=== PATIENT | female | born 1995 | race Caucasian/White ===

== ENCOUNTER 2022-07-16 16:54 | Emergency (ER) | payer BC, SELFPAY ==
[2022-07-16 17:08] VITALS: BP 105/66; PULSE 95; RESP 16; TEMP 36.8; O2SAT 98; BMI 22.1
--- NOTE | 2022-07-16 17:12 | DI.RAD.S_ITS ---
PROCEDURE: XR CHEST 2V INDICATIONS: cough/asthma TECHNIQUE: 2 views of the chest were acquired. COMPARISON: None. FINDINGS: Surgical changes and devices: None. Lungs and pleura: Lungs are clear. No pleural effusions or pneumothorax. Mediastinum: Mediastinal contours are normal. Heart size is normal. Bones and chest wall: No suspicious bony abnormalities. Soft tissues appear unremarkable. IMPRESSION: Normal two view chest x-ray Approved by: Kristofer Mitchell M.D. on 07/16/2022 at 17:04
[2022-07-16 18:22] LABS: Adenovirus Not Detected (Not Detect); B. parapertussis Not Detected (Not Detecte); Bordetella pertussis Not Detected (Not Detecte); Chlamydophila pneumoniae Not Detected (Not Detect); Coronavirus 229E Not Detected (Not Detect); Coronavirus HKU1 Not Detected (Not Detect); Coronavirus NL 63 Not Detected (Not Detect); Coronavirus OC43 Not Detected (Not Detect); Human Metapneumovirus Not Detected (Not Detect); Human Rhinovirus/Enterovirus Detected (Not Detect); Influenza A Not Detected (Not Detect); Influenza B Not Detected (Not Detect); Mycoplasma pneumoniae Not Detected (Not Detect); Parainfluenza Virus 1 Not Detected (Not Detect); Parainfluenza Virus 2 Not Detected (Not Detect); Parainfluenza Virus 3 Not Detected (Not Detect); Parainfluenza Virus 4 Not Detected (Not Detect); Respiratory Syncytial Virus Not Detected (Not Detect); SARS- CoV-2 Not Detected (Not Detecte)
--- NOTE | 2022-07-16 18:33 | ED.URI ---
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 Mainly due to persistent throat pain patient wanted to be assessed. She denies fever admits to some chills, persistent dry cough, and clear nasal discharge. Related Data Allergies Allergy/AdvReac Type Severity Reaction Status Date / Time Penicillins Allergy Verified 07/16/22 19:05 Review of Systems <Sahra Muniz PA-C - Last Filed: 07/16/22 19:09> Review of Systems Narrative: Pertinent review of systems is otherwise normal unless stated in HPI Exam <Sahra Muniz PA-C - Last Filed: 07/16/22 19:09> Narrative Exam Narrative: GENERAL: 26 year old patient appears stated age. Well-developed patient, in no acute distress. HEAD: Atraumatic. Normocephalic. EYES: Pupils equal round and reactive. Extraocular motions intact. No scleral icterus. No injection or drainage. ENT: Nasopharynx was clear bilateral nostril discharge without bleeding, purulent drainage. Throat with erythema, no exudates no tonsillar hypertrophy Airway patent. NECK: Trachea midline. Non tender CARDIOVASCULAR: Regular rate and rhythm without murmurs, gallops, or rubs. RESPIRATORY: Clear to auscultation. Breath sounds equal bilaterally. No wheezes, rales, or rhonchi. GASTROINTESTINAL: Abdomen soft, non-tender, nondistended. EXTREMITIES: No edema or joint tenderness. BACK: Nontender without deformity or crepitance. No flank tenderness. NEURO: AOx3. No focal deficits SKIN: No rash or erythema of visible areas Initial Vital Signs Initial Vital Signs: Vital Signs Temperature 98.2 F 07/16/22 17:08 Pulse Rate 95 H 07/16/22 17:08 Respiratory Rate 16 07/16/22 17:08 Blood Pressure 105/66 07/16/22 17:08 Pulse Oximetry 98 07/16/22 17:08 Oxygen Delivery Method 07/16/22 17:08 <Solange Em DO - Last Filed: 07/17/22 02:27> Initial Vital Signs Initial Vital Signs: Vital Signs Temperature 98.2 F 07/16/22 17:08 Pulse Rate 95 H 07/16/22 17:08 Respiratory Rate 16 07/16/22 17:08 Blood Pressure 105/66 07/16/22 17:08 Pulse Oximetry 98 07/16/22 17:08 Oxygen Delivery Method 07/16/22 17:08 Course <Sahra Muniz PA-C - Last Filed: 07/16/22 19:09> Orders Ordered: ED Orders 07/16/22 17:12 XR chest 2V Stat 07/16/22 17:13 Respiratory Panel (Film Array) Stat Vital Signs Vital signs: Vital Signs - 8 hr 07/16/22 19:16 Pulse Rate 94 H Respiratory Rate 16 Blood Pressure 110/75 Pulse Oximetry 99 Oxygen Delivery Method Room Air <Solange Em DO - Last Filed: 07/17/22 02:27> Orders Ordered: ED Orders 07/16/22 17:12 XR chest 2V Stat 07/16/22 17:13 Respiratory Panel (Film Array) Stat Vital Signs Vital signs: Vital Signs - 8 hr 07/16/22 19:16 Pulse Rate 94 H Respiratory Rate 16 Blood Pressure 110/75 Pulse Oximetry 99 Oxygen Delivery Method Room Air MDM - URI/Sore Throat <OUSMANE Richards Last Filed: 07/16/22 19:09> Lab Data Labs: Lab Results 07/16/22 Range/Units 17:13 Chlamy pneumoniae PCR Not detected (Not Detect) Adenovirus (PCR) Not detected (Not Detect) B. pertussis DNA (PCR) Not detected (Not Detecte) B.parapertussis DNA PCR Not detected (Not Detecte) Coronavirus OC43 (PCR) Not detected (Not Detect) Coronavirus HKU1 (PCR) Not detected (Not Detect) Coronavirus 229E (PCR) Not detected (Not Detect) SARS-CoV-2 (PCR) Not detected (Not Detecte) Coronavirus NL63 (PCR) Not detected (Not Detect) Human Metapneumovir PCR Not detected (Not Detect) Influenza Type A (PCR) Not detected (Not Detect) Influenza Type B (PCR) Not detected (Not Detect) M. pneumoniae (PCR) Not detected (Not Detect) Parainfluenza 1 (PCR) Not detected (Not Detect) Parainfluenza 2 (PCR) Not detected (Not Detect) Parainfluenza 3 (PCR) Not detected (Not Detect) Parainfluenza 4 (PCR) Not detected (Not Detect) RSV (PCR) Not detected (Not Detect) Entero/Rhino (PCR) Detected H (Not Detect) MDM Narrative Medical decision making narrative: Patient diagnosed with rhinovirus, which presents itself was upper respiratory symptoms. For vital signs are stable she remains afebrile she was educated on symptom management, including decongesting, Tylenol gargle throat with salt water solution she can try some numbing lozenges such as Cepacol. Seek attention with worsening symptoms. <Solange Em, DO - Last Filed: 07/17/22 02:27> Lab Data Labs: Lab Results 07/16/22 Range/Units 17:13 Chlamy pneumoniae PCR Not detected (Not Detect) Adenovirus (PCR) Not detected (Not Detect) B. pertussis DNA (PCR) Not detected (Not Detecte) B.parapertussis DNA PCR Not detected (Not Detecte) Coronavirus OC43 (PCR) Not detected (Not Detect) Coronavirus HKU1 (PCR) Not detected (Not Detect) Coronavirus 229E (PCR) Not detected (Not Detect) SARS-CoV-2 (PCR) Not detected (Not Detecte) Coronavirus NL63 (PCR) Not detected (Not Detect) Human Metapneumovir PCR Not detected (Not Detect) Influenza Type A (PCR) Not detected (Not Detect) Influenza Type B (PCR) Not detected (Not Detect) M. pneumoniae (PCR) Not detected (Not Detect) Parainfluenza 1 (PCR) Not detected (Not Detect) Parainfluenza 2 (PCR) Not detected (Not Detect) Parainfluenza 3 (PCR) Not detected (Not Detect) Parainfluenza 4 (PCR) Not detected (Not Detect) RSV (PCR) Not detected (Not Detect) Entero/Rhino (PCR) Detected H (Not Detect) Discharge Plan Departure Patient Disposition: Home Clinical Impression: Viral infection Instructions: DI for Viral Upper Respiratory Infection -- Adult Activity Restrictions/Additional Instructions: You were seen in ER department with upper respiratory infection diagnosed as a rhino virus. While there is no definitive antiviral therapy for specifically rhinovirus, the symptom management with rest, hydration, cough suppression , decongestion is advised with [id number] preparations such as Gatorade, Robitussin DM, Tylenol as needed pain Seek attention with worsening symptoms such as shortness of breath, fever, listlessness worsening fatigue. Visit Report Forms: Patient Portal/API <Solange Em DO - Last Filed: 07/17/22 02:27> Cosign ED Attending Cosabeature Attestation: I was immediately available in the department for consultation. Documentation has been reviewed. I agree with assessment and plan.
--- NOTE | 2022-07-16 19:11 | PC.NURSE ---
pt's daughter with entero/rhino virus and pt exposed and experiencing the same sx. RR even and unlabored. NAD. pt reports my made me come get checked
[2022-07-16 19:16] VITALS: BP 110/75; PULSE 94; RESP 16; O2SAT 99
== END 2022-07-16 19:16 | disposition home or self-care (01) ==
PROVIDERS: Emergency Medicine; Emergency Provider Physician Assistant Medical
DX: B34.9 Viral infection, unspecified (principal); Z20.822 Contact with and (suspected) exposure to COVID-19
CPT/HCPCS: 71046; 87633; 99281; 99283

== ENCOUNTER 2022-11-27 08:44 | Emergency (ER) | payer BC, SELFPAY ==
[2022-11-27 08:48] VITALS: BP 121/64; PULSE 106; O2SAT 97
[2022-11-27 08:54] VITALS: BP 121/64; PULSE 99; RESP 21; TEMP 36.8; O2SAT 99; BMI 23.0
[2022-11-27 09:00] VITALS: PULSE 108; O2SAT 97
--- NOTE | 2022-11-27 09:02 | ED_ITS ---
HPI - Headache General Chief Complaint: Headache Stated Complaint: migraine T-1 Time Seen by Provider: 11/27/22 09:02 Source: patient Mode of arrival: Ambulatory Limitations: no limitations History of Present Illness HPI Narrative: This is a 27-year-old female with chronic migraines who receives Botox, and no uterine polyp. Patient presents with typical migraine symptoms. She typically gets vision loss with her right eye pain and nausea and vomiting. She states she normally takes her medication amerge, metformin she is about to start IVF and has planned polypectomy for uterine polyp on the 30 of November. Patient states she was told not to take her migraine medication to present to the ER if she had symptoms within the week before. Patient states she tried Tylenol last night without improvement. She states this is very typical pattern for her. She denies fevers or chills, no other changes to her typical pattern. She denies numbness, tingling weakness difficulty with gait. Patient denies any inf ectious symptoms. She is had nausea and vomiting. No diarrhea constipation. Patient does receive Botox for her migraines. She denies tobacco, occasional alcohol, no illicit. She states she is allergic to penicillins. Related Data Allergies Allergy/AdvReac Type Severity Reaction Status Date / Time Penicillins Allergy Verified 07/16/22 19:05 Review of Systems Review of Systems ROS Unobtainable: All systems reviewed & are unremarkable except as noted in HPI and below Patient History Social History Smoking Status: Never smoker Smoking Status: Never smoker alcohol intake frequency: a few times a week Substance Use Type: does not use Exam Narrative Exam Narrative: GEN: well nourished, well appearing female, alert and oriented x 3, patient appears to be in moderate distress. HEENT: Atraumatic, pupils are equal round reactive to light, extraocular movements are intact, nares are clear. Throat is clear without any exudates, erythema, tonsillar enlargement or uvular deviation. No meningeal signs. HEART: Regular rate and rhythm without murmur, clicks, rubs. LUNGS:Lungs clear to auscultation, no wheezes, rales, crackles, chest moves symmetrically ABD:bowel sounds normal, soft, non-tender, no guarding, rebound, rigidity, no masses noted, no hepatosplenomegaly :No CVA tenderness MSCL: Non-tender, no muscle atrophy, muscles strength 5/5 upper and lower extremities, full range of motion, normal gait NEURO:CN 2-12 intact, sensation normal SKIN:no rash, erythema or other skin change Initial Vital Signs Initial Vital Signs: Vital Signs Pulse Rate 106 H 11/27/22 08:48 Blood Pressure 121/64 11/27/22 08:48 Pulse Oximetry 97 11/27/22 08:48 Course Orders Ordered: Discontinued Medications Diphenhydramine HCl (Diphenhydramine 50 Mg/Ml Vial) 50 mg IV NOW ONE Stop: 11/27/22 10:21 Last Admin: 11/27/22 10:24 Dose: 50 mg Documented By: ÁNGELU Sodium Chloride (Normal Saline 0.9%) 1,000 mls @ 1,000 mls/hr IV BOLUS ONE Stop: 11/27/22 10:09 Last Infusion: 11/27/22 10:14 Dose: 0 mls/hr Documented By: Admin: 11/27/22 09:23 Dose: 1,000 mls/hr Documented By: CHAGO Ketorolac Tromethamine (Ketorolac 30 Mg/Ml Vial) 15 mg IV NOW ONE Stop: 11/27/22 10:21 Last Admin: 11/27/22 10:24 Dose: 15 mg Documented By: ÁNGELU Metoclopramide HCl (Metoclopramide 10 Mg/2 Ml Inj) 10 mg IV NOW ONE Stop: 11/27/22 09:11 Last Admin: 11/27/22 09:23 Dose: 10 mg Documented By: CHAGO Vital Signs Vital signs: Vital Signs - 8 hr 11/27/22 11:02 Temperature 98.1 F Pulse Rate 99 H Respiratory Rate 20 Blood Pressure 113/73 Pulse Oximetry 99 Oxygen Delivery Method Room Air MDM - Headache MDM Narrative Medical decision making narrative: This is a 27-year-old who presents with her typical migraine symptoms but states that she was told to present to the ER she has planned uterine polypectomy on the 30 of November and was told to avoid her abortive medication. Patient did try Tylenol last night. She does have some active vomiting in the department. Patient's symptoms are her typical characteristic migraine which she does receive Botox for as well. Plan for fluids, Reglan discussed with patient if this is not helpful can do a single dose of Toradol. On recheck patient states she would like take her IV out and leave, after discussion she is feeling very anxious I suspect she is having a dystonic reaction to the Reglan. She states it started shortly after the medication she is been up and ambulating in the department since then. Discussed we can try dose of Benadryl see if this improves her symptoms. Headache still present so will add a dose of Toradol and recheck. Patient's chin dystonic symptoms have improved she states her headache is significantly better after the Toradol. She would like to return home. Discharge Plan Departure Patient Disposition: Home Clinical Impression: Migraine Instructions: DI for Migraine Activity Restrictions/Additional Instructions: You appear to have had a dystonic reaction to the Reglan, it is not an allergy but is more of an adverse reaction. Please share this when asked about allergies. I hope you continue to feel better. You can take Tylenol up to a 1000 mg every 6 hours as needed for any headache recurrence. Please return for fevers, severe headaches, new vision changes, recurrent or persistent migraines, persistent vomiting, new numbness tingling, difficulty with speech or other new or concerning changes. Referrals: Miscellaneous,Doctor, MD [Primary Care Provider] - Stand Alone Forms: Patient Portal/API
[2022-11-27 09:13] VITALS: BP 133/70; PULSE 93; O2SAT 97
[2022-11-27] MEDS: METOCLOPRAMIDE 10 MG/2 ML INJ IV (09:23)
[2022-11-27] MEDS: SODIUM CHLORIDE 0.9% 1,000 ML 1000 ML IV (09:23)
[2022-11-27 09:30] VITALS: BP 122/67; PULSE 101; O2SAT 96
[2022-11-27] MEDS: diphenhydrAMINE 50 MG/ML VIAL IV (10:24)
[2022-11-27] MEDS: KETOROLAC 30 MG/ML VIAL 15 MG IV (10:24)
[2022-11-27 11:02] VITALS: BP 113/73; PULSE 99; RESP 20; TEMP 36.7; O2SAT 99
== END 2022-11-27 11:03 | disposition home or self-care (01) ==
PROVIDERS: Emergency Provider Emergency Medicine
DX: G43.909 Migraine, unspecified, not intractable, without status migrainosus (principal)
CPT/HCPCS: 36415; 96361; 96374; 96375; 99284; J1200; J1885; J2765

== ENCOUNTER 2023-06-04 01:09 | Observation (INO) | payer BC, SELFPAY ==
[2023-06-04] VITALS (27 sets, daily range): BP systolic 79–121; BP diastolic 47–73; PULSE 72–136; RESP 15–34; TEMP 36.1–36.8; O2SAT 97–100; BMI 22.6
--- NOTE | 2023-06-04 | PATH_ITS ---
[facility] Accession Number: [id number] No. of containers..01 Tissue . 01 Material submitted: . product of conception - RETAINED PRODUCTS OF CONCEPTION . 01 Diagnosis: A. Retained Products of Conception, Removal: Residual fragments of syncytiotrophoblasts, a rare chorionic villus, and implantation site. Background with decidua and inactive endometrium with features of breakdown. Blood, fibrin, and inflammatory debris. MRV 06/06/2023 1609 Local . 01 Electronically signed: . Maria Teresa Taveras MD, Pathologist NPI- [id number] . 01 Gross description: . The specimen is received in formalin labeled with the patient's name, , and retained products of conception, consists of multiple [place]ley, variably spongy to membranous soft tissue fragments admixed with hemorrhagic material aggregating to 4.6 x 4.0 x 0.7 cm. No tissue is identified. Box Loader sections are submitted in cassettes A1-A2. ([id number]) /MRV 06/05/2023 1253 Local . 01 Pathologist provided ICD-10: O73.1 . 01 CPT . 558317 Specimen Comment: A courtesy copy of this report has been sent to [phone] Performed at: 01 [facility] [address] [place] [address] [address], [place], [place] [id number] MD Vimal Bliss MD Phone: [phone]
[2023-06-04 01:46] LABS: Add Manual Diff / Slide Review NO; Basophils Absolute Auto 100 /uL (0-100); Basophils Percent Auto 0.9 % (0-2); Eosinophils Absolute Auto 200 /uL (0-450); Eosinophils Percent Auto 2.1 % (2-4); Hematocrit 35.3 % (36-46); Hemoglobin 12.2 g/dL (12.0-16.0); Lymphocytes Absolute Auto 3100 /uL (1100-4500); Lymphocytes Percent Auto 38.6 % (25-40); Mean Corpuscular HGB Conc 34.6 % (30-36); Mean Corpuscular Hemoglobin 32.1 PG (26-34); Mean Corpuscular Volume 92.6 fL (80-100); Monocytes Absolute Auto 500 /uL (0-900); Monocytes Percent Auto 5.9 % (3-14); Neutrophils Absolute Auto 4200 /uL (1500-7000); Neutrophils Percent Auto 52.5 % (50-75); Platelet Count 297 X10^3/uL (150-400); Red Blood Cell Count 3.81 X10^6/uL (4.0-5.2); Red Cell Distribution Width 12.4 % (11.6-14.8); White Blood Cell Count 7.9 X10^3/uL (4.5-11.0)
[2023-06-04 02:02] LABS: BUN Creatinine Ratio 20.6 (6-22); Blood Urea Nitrogen 13 mg/dL (7-17); Calcium 8.5 mg/dL (8.4-10.2); Carbon Dioxide 24 mmol/L (22-32); Chloride 103 mmol/L (98-107); Estimated Glomerular Filt Rate > 60 mL/min (>60); Glucose 102 mg/dL (70-100); HEMOLYSIS 18 (0-50); Potassium 3.7 mmol/L (3.4-5.1); Sodium 137 mmol/L (137-145)
[2023-06-04] MEDS: SODIUM CHLORIDE 0.9% 1,000 ML 1000 ML IV ×3 (02:03→03:05)
[2023-06-04 02:31] LABS: HCG Quantitative /Beta subunit 18745 mIU/mL
--- NOTE | 2023-06-04 02:37 | DI.US.S_ITS ---
PROCEDURE: US PELVIC COMPLETE INDICATIONS: Miscarriage TECHNIQUE: Real-time scanning was performed of the pelvic organs, with image documentation. Additional endovaginal scanning was necessary due to incomplete visualization of the adnexal and endometrial structures by transabdominal scanning. COMPARISON: None. FINDINGS: Uterus: Uterus is anteverted and normal in size at 10 x 6.2 x 4.4 cm. The myometrium is homogeneous. The endometrium measures 15 mm combined thickness. Endometrial contents are heterogeneous. No increased vascularity. No surrounding hyperemia. No intrauterine gestational sac is identified. Clot within the cervix is suspected. Ovaries: The right ovary measures 2 x 1.7 x 1.4 cm, with a calculated ovarian volume of 3 cc. The left ovary measures 2.5 x 1.6 x 1.3 cm, with a calculated ovarian volume of 3 cc. The ovaries have a normal sonographic appearance. Less than 12 follicles can be seen in each ovary. No adnexal masses are seen. Other: Small volume of free fluid in the pelvis. IMPRESSION: 1. Endometrium is heterogeneous in appearance measuring 15 mm in thickness. No hyperemia. Clot within the cervix is suspected. 2. No significant ovarian cyst. This report is concordant with the overnight preliminary interpretation. We strive to produce accurate, complete, and clear reports of imaging services. To assist us in improving patient care, this report was composed using standard report templates and voice recognition software. Therefore, it may contain abnormal punctuation, insertions and/or omissions. Occasional wrong-word or sound-alike substitutions may occur. Though we review the report and make efforts to correct it, we do recommend that the report be read carefully in proper context to recognize any text inaccuracies. Dictated by: Hollis Hatch M.D. on 06/04/2023 at 8:20 Approved by: Hollis Hatch M.D. on 06/04/2023 at 8:27
--- NOTE | 2023-06-04 02:38 | ED_ITS ---
HPI - General Chief complaint: Vaginal Bleeding Stated complaint: vaginal bleeding going thru ivf Time Seen by Provider: 06/04/23 01:43 Source: patient Mode of arrival: Ambulatory Limitations: no limitations History of Present Illness HPI Narrative: Patient is a healthy 27-year-old female presenting with vaginal bleeding cramping and pain. She reports that he had IVF she would an ultrasound last week which showed some bleeding and probable demise. Tonight she started having pretty significant bleeding and cramping. And came to the ED. nurse started IV and she very pale she vasovagal. She is receiving care at [facility]. Related Data Allergies Allergy/AdvReac Type Severity Reaction Status Date / Time Penicillins Allergy Verified 07/16/22 19:05 metoclopramide [From Reglan] AdvReac Intermediate Anxiety Verified 06/04/23 05:41 Review of Systems Review of Systems ROS Unobtainable: All systems reviewed & are unremarkable except as noted in HPI and below Exam Initial Vital Signs Initial Vital Signs: Vital Signs Temperature 97.4 F L 06/04/23 01:13 Pulse Rate 98 H 06/04/23 01:13 Respiratory Rate 20 06/04/23 01:13 Blood Pressure 105/58 L 06/04/23 01:13 Pulse Oximetry 97 06/04/23 01:13 Oxygen Delivery Method Room Air 06/04/23 01:13 GENERAL: Pale ill-appearing 27-year-old female HEENT: Head atraumatic,EOMI, pupils reactive, face symmetric, moist mucous membranes CARDIOVASCULAR: Regular rate and rhythm without murmurs, rubs or gallops. RESPIRATORY: Breath sounds equal bilaterally, no wheezes rales or rhonchi. ABDOMEN: Soft, nontender. Normoactive bowel sounds all 4 quadrants. No guarding or rebound. PELVIC: External genitalia is normal, excessive vaginal bleeding with large clot os open EXTREMITIES: Normal range of motion, no clubbing or edema. Neurovascularly intact NEUROLOGICAL: Alert and oriented x4.Normal gait and speech. SKIN: Warm, dry, no laceration, no petechiae, no rashes or lesions. Course Orders Ordered: ED Orders 06/04/23 01:29 Basic Metabolic Panel Stat Complete Blood Count AUTO DIFF Stat HCG Quantitative /Beta subunit Stat PRBC [Packed Cells] Stat Type and Screen Stat 06/04/23 01:38 EKG-12 Lead Routine 06/04/23 02:37 US pelvic complete Stat 06/04/23 03:06 Hemoglobin and Hematocrit Stat Albuterol (Albuterol 2.5 Mg/3 Ml Neb (Adult)) 2.5 mg INH NOW PRN PRN Reason: Coughing, Wheezing, Dyspnea Hydromorphone HCl (Hydromorphone 1 Mg Inj) 0.5 mg IV Q5MIN PRN PRN Reason: Mod pain Lactated Ringer's (Lactated Ringers) 1,000 mls @ 100 mls/hr IV CONT SHAKILA Meperidine HCl (Meperidine 50 Mg/Ml Inj) 25 mg IV PACUNOW PRN PRN Reason: Moderate pain or shivering Metoclopramide HCl (Metoclopramide 10 Mg/2 Ml Inj) 10 mg IV NOW PRN PRN Reason: Nausea And Vomiting Ondansetron HCl (Ondansetron 4 Mg/2 Ml Inj) 4 mg IV NOW PRN PRN Reason: Nausea And Vomiting Oxycodone/Acetaminophen (Oxycodone/Acetaminophen 5/325 Tablet) 1 tab PO PACUNOW PRN PRN Reason: Mild or Moderate Pain Discontinued Medications Sodium Chloride (Normal Saline 0.9%) 1,000 mls @ 1,000 mls/hr IV BOLUS ONE Stop: 06/04/23 02:59 Last Infusion: 06/04/23 02:13 Dose: Infused Documented By: Admin: 06/04/23 02:03 Dose: 1,000 mls/hr Documented By: AMAN Sodium Chloride (Normal Saline 0.9%) 1,000 mls @ 1,000 mls/hr IV BOLUS ONE Stop: 06/04/23 03:13 Last Infusion: 06/04/23 03:08 Dose: Infused Documented By: Admin: 06/04/23 02:15 Dose: 1,000 mls/hr Documented By: AMAN Sodium Chloride (Normal Saline 0.9%) 1,000 mls @ 1,000 mls/hr IV BOLUS ONE Stop: 06/04/23 03:59 Last Infusion: 06/04/23 04:00 Dose: Infused Documented By: Admin: 06/04/23 03:05 Dose: 1,000 mls/hr Documented By: GENIE Lactated Ringer's (Lactated Ringers) 1,000 mls @ 42 mls/hr IV CONT SHAKILA Ketorolac Tromethamine (Ketorolac 30 Mg/Ml Vial) 15 mg IV NOW ONE Stop: 06/04/23 03:38 Last Admin: 06/04/23 03:52 Dose: 15 mg Documented By: GENIE Vital Signs Vital signs: Vital Signs - 8 hr 06/04/23 01:13 06/04/23 01:34 06/04/23 01:39 Temperature 97.4 F L Pulse Rate 98 H 79 Respiratory Rate 20 25 H Blood Pressure 105/58 L 90/54 L Pulse Oximetry 97 98 Oxygen Delivery Method Room Air 06/04/23 01:39 06/04/23 01:42 06/04/23 01:42 Temperature Pulse Rate 82 72 Respiratory Rate 27 H 20 Blood Pressure 88/50 L Pulse Oximetry 98 99 Oxygen Delivery Method 06/04/23 02:00 06/04/23 02:00 06/04/23 02:15 Temperature Pulse Rate 74 72 Respiratory Rate 18 19 Blood Pressure 83/54 L Pulse Oximetry 100 100 Oxygen Delivery Method Room Air 06/04/23 02:15 06/04/23 02:27 06/04/23 02:27 Temperature Pulse Rate 110 H Respiratory Rate 32 H Blood Pressure 80/50 L 87/52 L Pulse Oximetry 100 Oxygen Delivery Method 06/04/23 02:30 06/04/23 02:30 06/04/23 02:45 Temperature Pulse Rate 105 H Respiratory Rate 15 Blood Pressure 95/55 L 80/47 L Pulse Oximetry 100 Oxygen Delivery Method 06/04/23 02:45 06/04/23 02:48 06/04/23 02:48 Temperature Pulse Rate 87 87 Respiratory Rate 16 18 Blood Pressure 79/51 L Pulse Oximetry 100 100 Oxygen Delivery Method 06/04/23 02:50 06/04/23 02:50 06/04/23 03:00 Temperature Pulse Rate 92 H 87 Respiratory Rate 19 17 Blood Pressure 86/54 L Pulse Oximetry 100 100 Oxygen Delivery Method 06/04/23 03:00 06/04/23 03:02 06/04/23 03:02 Temperature Pulse Rate 92 H Respiratory Rate 19 Blood Pressure 79/47 L 84/52 L Pulse Oximetry 100 Oxygen Delivery Method 06/04/23 03:15 06/04/23 03:15 06/04/23 03:30 Temperature Pulse Rate 89 90 Respiratory Rate 18 18 Blood Pressure 82/51 L Pulse Oximetry 100 100 Oxygen Delivery Method Room Air 06/04/23 03:30 06/04/23 03:45 06/04/23 03:45 Temperature Pulse Rate 84 Respiratory Rate 17 Blood Pressure 86/53 L 80/51 L Pulse Oximetry 100 Oxygen Delivery Method 06/04/23 04:00 06/04/23 04:00 Temperature Pulse Rate 85 Respiratory Rate 15 Blood Pressure 89/51 L Pulse Oximetry 97 Oxygen Delivery Method MDM - OB/Uterine Contractions Lab Data 06/04/23 04:17 06/04/23 01:29 Labs: Lab Results 06/04/23 06/04/23 Range/Units 01:29 03:06 WBC 7.9 (4.5-11.0) X10^3/uL RBC 3.81 L (4.0-5.2) X10^6/uL Hgb 12.2 9.1 L (12.0-16.0) g/dL Hct 35.3 L 26.3 L (36-46) % MCV 92.6 (80-100) fL MCH 32.1 (26-34) PG MCHC 34.6 (30-36) % RDW 12.4 (11.6-14.8) % Plt Count 297 (150-400) X10^3/uL Neut % (Auto) 52.5 (50-75) % Lymph % (Auto) 38.6 (25-40) % [place] % (Auto) 5.9 (3-14) % Eos % (Auto) 2.1 (2-4) % Baso % (Auto) 0.9 (0-2) % Neut # (Auto) 4200 (9776-6311) /uL Lymph # (Auto) 3100 (7865-5573) /uL [place] # (Auto) 500 (0-900) /uL Eos # (Auto) 200 (0-450) /uL Baso # (Auto) 100 (0-100) /uL Sodium 137 (137-145) mmol/L Potassium 3.7 (3.4-5.1) mmol/L Chloride 103 (98-107) mmol/L Carbon Dioxide 24 (22-32) mmol/L BUN 13 (7-17) mg/dL Creatinine 0.63 (0.52-1.04) mg/dL Estimated GFR > 60 (>60) mL/min BUN/Creatinine Ratio 20.6 (6-22) Glucose 102 H (70-100) mg/dL Calcium 8.5 (8.4-10.2) mg/dL HCG, Quant 49220 mIU/mL Blood Type O Positive Antibody Screen Negative Crossmatch See Detail Point of Care Testing Test Results Not applicable Imaging Data US - OB: Radiologist's Impression: Preliminary report: Heterogeneous thickening of endometrium measuring up to 15 mm no associated hypervascularity heterogeneous thickening of the cervix which may indicate blood clot. Ovarian is unremarkable. MDM Narrative Medical decision making narrative: Patient 27-year-old female presents with spontaneous miscarriage she was when she arrived. She reports that she does not like needles or IVs and she did vasovagal IV was placed. However her blood pressure remained low in the 80s with minimal improvement with IV fluids. She received 3 L of IV fluid blood pressure was really in the 90s. She was not persistently tachycardic. Hemoglobin additionally 12.2 with hematocrit 35.3. Decreased to 9.1 and 26.3 respectively. Partial dilution however she has excessive bleeding upon exam. Pelvic exam revealed very large blood clot with quite a bit of blood. 100-[address] out[address] Guido called updated on patient's symptoms and test results agrees to come in for emergent D and C. Blood is ordered patient's blood pressure decreases to 80/50. Discharge Plan Departure Patient Disposition: Admitted to Surgery Clinical Impression: Hemorrhagic shock, Incomplete miscarriage Admit Date/Time: 06/04/23 04:05 Admit Provider: Kerry Guido [facility] Discharge Plan Provider Discharge comment: Patient to call with fever, chills, or bleeding vaginally more than a pad in an hour Ibuprofen 600 mg every 6 hours as needed Tylenol 650 mg every 6 hours as needed Patient may be discharged once vital signs are stable for 2 hours and patient is able to sit and stand without getting dizzy Please have patient eat and drink something before being discharged from the hospital Diet/Activity/Treatments Diet: Diet as Tolerated Activity: Nothing in the vagina until postop appointment
[2023-06-04 03:15] LABS: Hematocrit 26.3 % (36-46); Hemoglobin 9.1 g/dL (12.0-16.0)
[2023-06-04] MEDS: KETOROLAC 30 MG/ML VIAL 15 MG IV (03:52)
--- NOTE | 2023-06-04 04:14 | P.HPOB_ITS ---
History of Present Illness History of Present Illness Reason for admission: vaginal bleeding Narrative: Merlyn Hickman is a 27 year old female 2 para 1 who presented to the emergency department a few hours ago with brisk vaginal bleeding. Patient was seen by [facility]. She was found to have a nonviable 6 days ago. She initially had some spotting. Then around midnight the bleeding got heavy. In the emergency department her initial hemoglobin was 12.2. 2 hours later it had dropped to 9.1. She continues to have brisk vaginal bleeding. She also has had low blood pressure over the last hour. [facility] Medical History (Updated 06/04/23 @ 04:17 by Kerry Guido MD) Chronic migraine Asthma PCOS (polycystic ovarian syndrome) Infertility Surgical History (Updated 06/04/23 @ 04:18 by Kerry Guido MD) History of section History of hysteroscopy History of appendectomy Social History Smoking Status: Never smoker Meds Home Medications and Allergies Allergies Allergy/AdvReac Type Severity Reaction Status Date / Time Penicillins Allergy Verified 07/16/22 19:05 Exam Vital Signs (past 8 hours): - 06/04/23 01:13 06/04/23 01:34 06/04/23 01:39 Temperature 97.4 F L Pulse Rate 98 H 79 Respiratory Rate 20 25 H Blood Pressure 105/58 L 90/54 L Pulse Oximetry 97 98 Oxygen Delivery Method Room Air 06/04/23 01:39 06/04/23 01:42 06/04/23 01:42 Temperature Pulse Rate 82 72 Respiratory Rate 27 H 20 Blood Pressure 88/50 L Pulse Oximetry 98 99 Oxygen Delivery Method 06/04/23 02:00 06/04/23 02:00 06/04/23 02:15 Temperature Pulse Rate 74 72 Respiratory Rate 18 19 Blood Pressure 83/54 L Pulse Oximetry 100 100 Oxygen Delivery Method Room Air 06/04/23 02:15 06/04/23 02:27 06/04/23 02:27 Temperature Pulse Rate 110 H Respiratory Rate 32 H Blood Pressure 80/50 L 87/52 L Pulse Oximetry 100 Oxygen Delivery Method 06/04/23 02:30 06/04/23 02:30 06/04/23 02:45 Temperature Pulse Rate 105 H Respiratory Rate 15 Blood Pressure 95/55 L 80/47 L Pulse Oximetry 100 Oxygen Delivery Method 06/04/23 02:45 06/04/23 02:48 06/04/23 02:48 Temperature Pulse Rate 87 87 Respiratory Rate 16 18 Blood Pressure 79/51 L Pulse Oximetry 100 100 Oxygen Delivery Method 06/04/23 02:50 06/04/23 02:50 06/04/23 03:00 Temperature Pulse Rate 92 H 87 Respiratory Rate 19 17 Blood Pressure 86/54 L Pulse Oximetry 100 100 Oxygen Delivery Method 06/04/23 03:00 06/04/23 03:02 06/04/23 03:02 Temperature Pulse Rate 92 H Respiratory Rate 19 Blood Pressure 79/47 L 84/52 L Pulse Oximetry 100 Oxygen Delivery Method 06/04/23 03:15 06/04/23 03:15 06/04/23 03:30 Temperature Pulse Rate 89 90 Respiratory Rate 18 18 Blood Pressure 82/51 L Pulse Oximetry 100 100 Oxygen Delivery Method Room Air 06/04/23 03:30 06/04/23 03:45 06/04/23 03:45 Temperature Pulse Rate 84 Respiratory Rate 17 Blood Pressure 86/53 L 80/51 L Pulse Oximetry 100 Oxygen Delivery Method Oxygen Delivery Method Room Air Narrative Exam Narrative: Generally: Patient lying flat on the gurney, no acute distress Lungs: Clear to auscultation bilaterally Cardiovascular: Regular rate and rhythm External genitalia: Large amount of blood Extremities: No edema Pelvic exam: Deferred to OR Objective Labs 06/04/23 03:06 06/04/23 01:29 Labs: Laboratory Results - last 24 hr 06/04/23 06/04/23 01:29 03:06 WBC 7.9 RBC 3.81 L Hgb 12.2 9.1 L Hct 35.3 L 26.3 L MCV 92.6 MCH 32.1 MCHC 34.6 RDW 12.4 Plt Count 297 Neut % (Auto) 52.5 Lymph % (Auto) 38.6 [place] % (Auto) 5.9 Eos % (Auto) 2.1 Baso % (Auto) 0.9 Neut # (Auto) 4200 Lymph # (Auto) 3100 [place] # (Auto) 500 Eos # (Auto) 200 Baso # (Auto) 100 Sodium 137 Potassium 3.7 Chloride 103 Carbon Dioxide 24 BUN 13 Creatinine 0.63 Estimated GFR > 60 BUN/Creatinine Ratio 20.6 Glucose 102 H Calcium 8.5 HCG, Quant 52142 Blood Type O Positive Antibody Screen Negative Crossmatch See Detail Assessment & Plan Assessment & Plan narrative: Assessment: 27-year-old 2 para 1 with an incomplete miscarriage Decreased hemoglobin Low blood pressure Plan: Suction D&C The risks, benefits, and alternatives to the procedure were explained to the patient. The risks including bleeding, infection, and uterine perforation. She understands these risks and agrees to proceed. A full par Q was held and consent form was signed. Time Spent With Patient Time with patient: less than 30 minutes
--- NOTE | 2023-06-04 04:17 | SUR.OPER ---
Lithotomy on padded OR bed, head on pillow, arms secured on padded arm boards at <90 degrees abduction. Legs secured in padded yellow fins stirrups.
[2023-06-04 04:25] LABS: Hematocrit 28.1 % (36-46); Hemoglobin 9.6 g/dL (12.0-16.0)
--- NOTE | 2023-06-04 05:10 | PM.GYNOP.1 ---
Operative Date/Time/Diagnoses Date of procedure: 06/04/23 Time of procedure: 05:10 Pre-op diagnosis: Incomplete at 6 weeks' gestation Post-op diagnosis: same Procedure & Clinicians Procedure: Procedures Operation Date: 06/04/23 04:30 Actual Procedure Side Surgeon p Dilation and Curettage Kerry Guido MD Indications: Patient is a 27-year-old 2 para 1 who presented to the emergency department with brisk vaginal bleeding. Her hematocrit dropped from 12.2 down to 9.1 over the course of 2 hours. Her blood pressure was unstable. Surgeon: Kerry Guido Anesthesia Type: General Operative Notes Findings: 7 week size anteverted uterus Large amount of blood in the vagina Large amount of tissue still in the uterus Closure Type: not applicable Specimen(s): products of conception Estimated blood loss (mL): 100 Blood products transfused: packed red blood cells (1 unit) Procedure in detail: Informed consent was obtained. The patient was taken to the operating room where she was placed in the dorsal supine position. After adequate general endotracheal anesthesia was achieved, she was placed in the dorsal lithotomy position, and prepped and draped in the usual sterile fashion. A time-out was performed. A bivalve speculum was placed into the vagina. It immediately filled up with a large amount of clot. The clot was removed from the vagina. A single-tooth tenaculum was placed on the anterior lip of the cervix. The cervix was slightly dilated, but was further dilated to the # 10 Hegar dilator. The #8 plastic curette passed easily into the endometrial cavity. Several passes with suction revealed a large amount of tissue. Gentle sharp curettage was performed yielding minimal amount of clot. Several more passes with suction revealed blood only. The instruments were removed from the uterus. The single-tooth tenaculum was removed from the anterior lip of the cervix. The bivalve speculum was removed from the vagina. Sponge, lap, and instrument counts were correct x2. The patient tolerated the procedure well, and was taken to PACU in stable condition. Complications: none Post-operative Condition: stable Disposition: PACU Plan for aftercare: To acute care for observation and then discharge once stable
[2023-06-04] MEDS: MEPERIDINE 50 MG/ML INJ 25 MG IV (05:35)
[2023-06-04] MEDS: ONDANSETRON 4 MG/2 ML INJ IV (05:36)
--- NOTE | 2023-06-04 08:46 | CM.DANOTE ---
Initial DCP Assessment Note Pt is a 27 yo female, resident of [place], presents with vaginal bleeding and cramping admitted by Dr Guido for dilation and curettage after an incomplete miscarriage. Patient receiving fertility treatment, IVF at [facility] and learned recently that she had a nonviable at approx 5 weeks. PCP: Unknown Payer: [facility] out of [facility] Reviewed chart, patient indp in all aspects, lives with spouse and family. No barriers identified at this time to patient's safe discharge home w/family to assist; close outpatient f/u recommended. CM team will plan to follow closely in case any DC needs or concerns arise. KIMI Mcconnell Discharge Planning/Care Management CM Discharge Assessment Start: 06/04/23 08:40 Freq: Status: Active Protocol: Document 06/04/23 08:40 LACHO (Rec: 06/04/23 08:45 LACHO [id number]) Discharge Planning Assessment Assigned Customer Business Manager KIMI García DPOA/Assigned Designee Name Tao Pillaisofiya, spouse Contact Information [phone] Advance Directives? No History Provided By Patient Prior Living Arrangements House Comment [id number] and father also live with patient Household Members spouse,family,children Type of transporation used prior to Drives own vehicle admit Independent with ADL's Yes Is patient alert and oriented? Yes Caregiver for Another Yes: Child Comment Home w/family Barriers to Discharge No Discharge Plan Home Transportation Arrangement Family Referrals Initiated None needed
--- NOTE | 2023-06-04 09:37 | PC.NURSE ---
pt denied dizziness or lightheadedness while standing up BP 91/56 HR 16, MAP 68, provider aware of her her vitals. ok to DC per Dr. Guido
== END 2023-06-04 09:43 | disposition home or self-care (01) ==
LOC: ED 03:59 → AC 04:27
PROVIDERS: Admitting Provider Obstetrics & Gynecology; Emergency Provider Emergency Medicine; Visit Provider Obstetrics & Gynecology
PROC: (CPT 58120; principal; 2023-06-04 04:30)
DX: O03.1 Delayed or excessive hemorrhage following incomplete spontaneous abortion (principal); Z3A.01 Less than 8 weeks gestation of pregnancy
CPT/HCPCS: 59812; 36415; 36430; 76830; 76856; 80048; 84702; 85014; 85018; 85025; 86850; 86900; 86901; 93005; 96361; 96374; 96375; 99284; G0378; P9016; J0330; J1100; J1885; J2175; J2405; J2704; J3490

== ENCOUNTER 2023-06-09 17:17 | Emergency (ER) | payer BC, SELFPAY ==
[2023-06-04 06:11] VITALS: BMI 22.6
[2023-06-09] VITALS (13 sets, daily range): BP systolic 92–113; BP diastolic 50–72; PULSE 55–105; RESP 16–26; TEMP 36.8; O2SAT 97–100; BMI 24.5
--- NOTE | 2023-06-09 17:20 | ED.GENADULT ---
HPI - General Adult <Cameron Will DO - Last Filed: 06/12/23 17:56> General Chief complaint: Chest Pain Stated complaint: chest pain/sob post op Time Seen by Provider: 06/09/23 17:19 History of Present Illness HPI narrative: 27-year-old female nonsmoker with history of recent with complication of miscarriage at about 6 weeks and resultant hemorrhagic shock and surgical intervention with D&C and transfusions presents at the request of nursing hotline for evaluation of a relatively sudden onset retrosternal chest pain and shortness of breath that started about 2-3 hours ago. She states that she had been in her normal state of health over the course of the day. She denied any trauma or injury, no fever or chills. She has no pain, swelling or redness of her lower extremities. She states that her shortness of breath is constant but seems to be worse when she lays flat or walks around. She has persistent chest discomfort that seems to be worse when she lays flat. She denies any radiation of her symptoms. She is not dizzy nor weak or lightheaded. She denies fever or chills. She denies runny nose, sore throat. She denies any history of clots. She denies any exertional symptoms, no exercise intolerance and no history of cardiac disease. She denies abdominal pain, urinary complaints such as dysuria, frequency or urgency, no vaginal bleeding or discharge Related Data Home Medications Medication Instructions Recorded Confirmed acetaminophen 325 mg tablet 975 mg PO PRN PRN Pain 06/04/23 06/04/23 fluoxetine 40 mg capsule 40 mg PO DAILY 06/04/23 06/04/23 hydrocodone 5 mg-acetaminophen 325 1 - 2 tab PO Q4-6H PRN pain 06/04/23 06/04/23 mg tablet rimegepant 75 mg disintegrating 75 mg PO DAILY PRN migraine 06/04/23 06/04/23 tablet (Nurtec ODT) Allergies Allergy/AdvReac Type Severity Reaction Status Date / Time Penicillins Allergy Verified 07/16/22 19:05 metoclopramide [From Reglan] AdvReac Intermediate Anxiety Verified 06/04/23 05:41 Review of Systems <DO José Davis Last Filed: 06/12/23 17:56> Review of Systems Narrative: GENERAL: Denies chills, fatigue, malaise, fever, sweats. HEENT: Denies sinus pain, ear pain, sore throat, difficulty swallowing, dizziness. RESPIRATORY: See HPI. CARDIOVASCULAR: See HPI GASTROINTESTINAL: Denies nausea, vomiting, abdominal pain, diarrhea, constipation, melena. : Denies dysuria, frequency, incontinence, hematuria, urinary retention. MUSCULOSKELETAL: denies weakness, joint pain, or bony pain SKIN: Denies rash, skin lesions, or other NEUROLOGIC: Denies weakness, headache, numbness, change in speech, confusion, seizures, incoordination. PSYCHIATRIC: No concerning psychosocial issues. 12 point review of systems is negative except for those stated above Patient History <Cameron Will DO - Last Filed: 06/12/23 17:56> Medical History Chronic migraine Asthma PCOS (polycystic ovarian syndrome) Infertility Surgical History History of section History of hysteroscopy History of appendectomy Social History household members: spouse, family and children Smoking Status: Never smoker alcohol intake: current Smoking Status: Never smoker alcohol intake frequency: a few times a month Alcohol type: wine Substance Use Type: does not use Exam <Cameron Will DO - Last Filed: 06/12/23 17:56> Narrative Exam Narrative: GENERAL: [27] year old patient appears stated age. Well-developed patient, in mild distress. HEAD: Atraumatic. Normocephalic. EYES: Pupils equal round and reactive. Extraocular motions intact. No scleral icterus. No injection or drainage. ENT: Nose without bleeding, purulent drainage. Throat without erythema, tonsillar hypertrophy or exudate. Airway patent. NECK: Trachea midline. Non tender CARDIOVASCULAR: Slightly tachycardic but regular rhythm without murmurs, gallops, or rubs. RESPIRATORY: Clear to auscultation. Breath sounds equal bilaterally. No wheezes, rales, or rhonchi. GASTROINTESTINAL: Abdomen soft, non-tender, nondistended. EXTREMITIES: No edema or joint tenderness. BACK: Nontender without deformity or crepitance. No flank tenderness. NEURO: AOx3. SKIN: No rash or erythema of visible areas Initial Vital Signs Initial Vital Signs: Vital Signs Temperature 98.2 F 06/09/23 17:27 Pulse Rate 105 H 06/09/23 17:27 Respiratory Rate 20 06/09/23 17:27 Blood Pressure 113/69 06/09/23 17:27 Pulse Oximetry 99 06/09/23 17:27 Oxygen Delivery Method Room Air 06/09/23 17:27 <Gene Zhu DO - Last Filed: 06/09/23 21:31> Initial Vital Signs Initial Vital Signs: Vital Signs Temperature 98.2 F 06/09/23 17:27 Pulse Rate 105 H 06/09/23 17:27 Respiratory Rate 20 06/09/23 17:27 Blood Pressure 113/69 06/09/23 17:27 Pulse Oximetry 99 06/09/23 17:27 Oxygen Delivery Method Room Air 06/09/23 17:27 Scores <Cameron Will DO - Last Filed: 06/12/23 17:56> HEART Score Heart Score history: Slightly Suspicious Heart Score EKG: Normal Heart Score Age: < 45 years old Heart Score risk factors: No known risk factors Heart Score troponin: < or = to normal limit Heart Score Total: 0 <DO José Chaves Last Filed: 06/09/23 21:31> HEART Score Heart Score Total: 0 Course <DO José Davis Last Filed: 06/12/23 17:56> Orders Ordered: Discontinued Medications Sodium Chloride (Normal Saline 0.9%) 1,000 mls @ 1,000 mls/hr IV BOLUS ONE Stop: 06/09/23 18:24 Last Infusion: 06/09/23 20:17 Dose: Infused Documented By: Admin: 06/09/23 17:34 Dose: 1,000 mls/hr Documented By: CARMEN Vital Signs Vital signs: Vital Signs - 8 hr 06/09/23 17:27 06/09/23 17:30 06/09/23 17:34 Temperature 98.2 F Pulse Rate 105 H 91 H 88 Respiratory Rate 20 22 24 Blood Pressure 113/69 Pulse Oximetry 99 99 99 Oxygen Delivery Method Room Air 06/09/23 17:34 06/09/23 17:46 06/09/23 17:46 Temperature Pulse Rate 86 Respiratory Rate 26 H Blood Pressure 100/60 101/59 L Pulse Oximetry 100 Oxygen Delivery Method 06/09/23 18:00 06/09/23 18:00 06/09/23 18:30 Temperature Pulse Rate 84 82 Respiratory Rate 20 21 Blood Pressure 97/56 L Pulse Oximetry 99 100 Oxygen Delivery Method 06/09/23 18:30 06/09/23 19:00 06/09/23 19:00 Temperature Pulse Rate 75 Respiratory Rate 20 Blood Pressure 94/50 L 92/53 L Pulse Oximetry 100 Oxygen Delivery Method 06/09/23 19:30 06/09/23 19:30 06/09/23 20:00 Temperature Pulse Rate 67 62 Respiratory Rate 23 18 Blood Pressure 99/63 Pulse Oximetry 99 97 Oxygen Delivery Method 06/09/23 20:00 06/09/23 20:30 Temperature Pulse Rate 55 L Respiratory Rate 16 Blood Pressure 99/60 Pulse Oximetry 99 Oxygen Delivery Method <Gene Zhu DO - Last Filed: 06/09/23 21:31> Orders Ordered: Discontinued Medications Sodium Chloride (Normal Saline 0.9%) 1,000 mls @ 1,000 mls/hr IV BOLUS ONE Stop: 06/09/23 18:24 Last Infusion: 06/09/23 20:17 Dose: Infused Documented By: Admin: 06/09/23 17:34 Dose: 1,000 mls/hr Documented By: CARMEN Vital Signs Vital signs: Vital Signs - 8 hr 06/09/23 17:27 06/09/23 17:30 06/09/23 17:34 Temperature 98.2 F Pulse Rate 105 H 91 H 88 Respiratory Rate 20 22 24 Blood Pressure 113/69 Pulse Oximetry 99 99 99 Oxygen Delivery Method Room Air 06/09/23 17:34 06/09/23 17:46 06/09/23 17:46 Temperature Pulse Rate 86 Respiratory Rate 26 H Blood Pressure 100/60 101/59 L Pulse Oximetry 100 Oxygen Delivery Method 06/09/23 18:00 06/09/23 18:00 06/09/23 18:30 Temperature Pulse Rate 84 82 Respiratory Rate 20 21 Blood Pressure 97/56 L Pulse Oximetry 99 100 Oxygen Delivery Method 06/09/23 18:30 06/09/23 19:00 06/09/23 19:00 Temperature Pulse Rate 75 Respiratory Rate 20 Blood Pressure 94/50 L 92/53 L Pulse Oximetry 100 Oxygen Delivery Method 06/09/23 19:30 06/09/23 19:30 06/09/23 20:00 Temperature Pulse Rate 67 62 Respiratory Rate 23 18 Blood Pressure 99/63 Pulse Oximetry 99 97 Oxygen Delivery Method 06/09/23 20:00 06/09/23 20:30 Temperature Pulse Rate 55 L Respiratory Rate 16 Blood Pressure 99/60 Pulse Oximetry 99 Oxygen Delivery Method Medical Decision Making <Cameron Will, DO - Last Filed: 06/12/23 17:56> Lab Data 06/09/23 17:30 06/09/23 17:30 Labs: Lab Results 06/09/23 06/09/23 06/09/23 Range/Units 17:30 17:51 20:43 WBC 6.5 (4.5-11.0) X10^3/uL RBC 3.80 L (4.0-5.2) X10^6/uL Hgb 12.0 (12.0-16.0) g/dL Hct 34.9 L (36-46) % MCV 92.0 (80-100) fL MCH 31.5 (26-34) PG MCHC 34.3 (30-36) % RDW 12.9 (11.6-14.8) % Plt Count 317 (150-400) X10^3/uL Neut % (Auto) 59.6 (50-75) % Lymph % (Auto) 32.4 (25-40) % [place] % (Auto) 5.8 (3-14) % Eos % (Auto) 1.5 L (2-4) % Baso % (Auto) 0.7 (0-2) % Neut # (Auto) 3900 (1627-7314) /uL Lymph # (Auto) 2100 (4474-2999) /uL [place] # (Auto) 400 (0-900) /uL Eos # (Auto) 100 (0-450) /uL Baso # (Auto) 0 (0-100) /uL Sodium 138 (137-145) mmol/L Potassium 3.6 (3.4-5.1) mmol/L Chloride 105 (98-107) mmol/L Carbon Dioxide 26 (22-32) mmol/L BUN 9 (7-17) mg/dL Creatinine 0.65 (0.52-1.04) mg/dL Estimated GFR > 60 (>60) mL/min BUN/Creatinine Ratio 13.8 (6-22) Glucose 101 H (70-100) mg/dL Calcium 8.8 (8.4-10.2) mg/dL Total Bilirubin 0.4 (0.2-1.3) mg/dL AST 23 (14-36) IU/L ALT 16 (<35) IU/L Alkaline Phosphatase 57 (38-126) U/L Total Creatine Kinase 81 66 (30-135) U/L Troponin I < 0.012 < 0.012 (0.01-0.034) ng/mL NT-Pro-B Natriuret Pep 356 H (<125) pg/mL Total Protein 7.0 (6.3-8.2) g/dL Albumin 4.1 (3.5-5.0) g/dL Globulin 2.9 (1.7-4.1) g/dL Albumin/Globulin Ratio 1.4 (1.0-2.8) Procalcitonin 0.03 (<0.5) ng/mL SARS-CoV-2 (PCR) Negative (Negative) Influenza A (RT-PCR) Flu a negative (NEGATIVE) Influenza B (RT-PCR) Flu b negative (NEGATIVE) RSV (PCR) Negative (Negative) Blood Type O Positive Antibody Screen Negative Urine Dip Bedside Urine Glucose Negative Bedside Urine Bilirubin - Negative Bedside Urine Ketone - Negative Urine Specific [place] 1.005 Bedside Urine Occult Blood - Negative Bedside Urine pH 7.5 Bedside Urine Protein - Negative Bedside Urine Urobilinogen - Negative Bedside Urine Nitrite - Negative Bedside Urine Leukocytes - Negative Esterase Point of care testing: Urine Dip Bedside Urine Glucose Negative Bedside Urine Bilirubin - Negative Bedside Urine Ketone - Negative Urine Specific [place] 1.005 Bedside Urine Occult Blood - Negative Bedside Urine pH 7.5 Bedside Urine Protein - Negative Bedside Urine Urobilinogen - Negative Bedside Urine Nitrite - Negative Bedside Urine Leukocytes - Negative Esterase ECG Data Interpretation: [1757] EKG is normal sinus rhythm rate [84] and free of any signs of ischemia or ectopy. No ST segmental elevation or depression. No T wave inversions MDM Narrative Medical decision making narrative: CC: 27-year-old female with chest pain and shortness of breath for the past 2-3 hours Complicating co-morbidities: Recent , admission into the hospital for hemorrhagic shock, surgical intervention Data collected from: Patient Medical records reviewed: Prior notes reviewed in our EMR Differential considered, but not limited to: Pulmonary embolism versus pneumonia versus anemia versus cardiac ischemia versus other Exam documented above, pertinent findings include: Heart rate slightly tachy on arrival, improved to the 70s and 80s after she checks in, lungs clear and nonlabored, no use of accessory muscles, no abnormal lung sounds and no hypoxemia Lab Test results independently reviewed as above. Pertinent findings: No leukocytosis or left shift, no signs of , primary electrolytes and renal function at baseline, anemia Independently reviewed EKG as above Imaging studies independently reviewed: CT angiogram with PE protocol demonstrates no evidence of pulmonary embolism or focal infiltrate, there are small bilateral pleural effusions Treatments: Re-evaluations: Discussion: Disposition: see below, along with detailed discharge instructions that have been reviewed with patient as well as indications for ED re-evaluation and additional outpatient follow up <Gene Zhu DO - Last Filed: 06/09/23 21:31> Lab Data Labs: Lab Results 06/09/23 06/09/23 06/09/23 Range/Units 17:30 17:51 20:43 WBC 6.5 (4.5-11.0) X10^3/uL RBC 3.80 L (4.0-5.2) X10^6/uL Hgb 12.0 (12.0-16.0) g/dL Hct 34.9 L (36-46) % MCV 92.0 (80-100) fL MCH 31.5 (26-34) PG MCHC 34.3 (30-36) % RDW 12.9 (11.6-14.8) % Plt Count 317 (150-400) X10^3/uL Neut % (Auto) 59.6 (50-75) % Lymph % (Auto) 32.4 (25-40) % [place] % (Auto) 5.8 (3-14) % Eos % (Auto) 1.5 L (2-4) % Baso % (Auto) 0.7 (0-2) % Neut # (Auto) 3900 (6256-8106) /uL Lymph # (Auto) 2100 (0554-7153) /uL [place] # (Auto) 400 (0-900) /uL Eos # (Auto) 100 (0-450) /uL Baso # (Auto) 0 (0-100) /uL Sodium 138 (137-145) mmol/L Potassium 3.6 (3.4-5.1) mmol/L Chloride 105 (98-107) mmol/L Carbon Dioxide 26 (22-32) mmol/L BUN 9 (7-17) mg/dL Creatinine 0.65 (0.52-1.04) mg/dL Estimated GFR > 60 (>60) mL/min BUN/Creatinine Ratio 13.8 (6-22) Glucose 101 H (70-100) mg/dL Calcium 8.8 (8.4-10.2) mg/dL Total Bilirubin 0.4 (0.2-1.3) mg/dL AST 23 (14-36) IU/L ALT 16 (<35) IU/L Alkaline Phosphatase 57 (38-126) U/L Total Creatine Kinase 81 66 (30-135) U/L Troponin I < 0.012 < 0.012 (0.01-0.034) ng/mL NT-Pro-B Natriuret Pep 356 H (<125) pg/mL Total Protein 7.0 (6.3-8.2) g/dL Albumin 4.1 (3.5-5.0) g/dL Globulin 2.9 (1.7-4.1) g/dL Albumin/Globulin Ratio 1.4 (1.0-2.8) Procalcitonin 0.03 (<0.5) ng/mL SARS-CoV-2 (PCR) Negative (Negative) Influenza A (RT-PCR) Flu a negative (NEGATIVE) Influenza B (RT-PCR) Flu b negative (NEGATIVE) RSV (PCR) Negative (Negative) Blood Type O Positive Antibody Screen Negative Urine Dip Bedside Urine Glucose Negative Bedside Urine Bilirubin - Negative Bedside Urine Ketone - Negative Urine Specific [place] 1.005 Bedside Urine Occult Blood - Negative Bedside Urine pH 7.5 Bedside Urine Protein - Negative Bedside Urine Urobilinogen - Negative Bedside Urine Nitrite - Negative Bedside Urine Leukocytes - Negative Esterase Point of care testing: Urine Dip Bedside Urine Glucose Negative Bedside Urine Bilirubin - Negative Bedside Urine Ketone - Negative Urine Specific [place] 1.005 Bedside Urine Occult Blood - Negative Bedside Urine pH 7.5 Bedside Urine Protein - Negative Bedside Urine Urobilinogen - Negative Bedside Urine Nitrite - Negative Bedside Urine Leukocytes - Negative Esterase MDM Narrative Medical decision making narrative: CC: 27-year-old female with chest pain and shortness of breath for the past 2-3 hours Complicating co-morbidities: Recent , admission into the hospital for hemorrhagic shock, surgical intervention Data collected from: Patient Medical records reviewed: Prior notes reviewed in our EMR Differential considered, but not limited to: Pulmonary embolism versus pneumonia versus anemia versus cardiac ischemia versus other Exam documented above, pertinent findings include: Heart rate slightly tachy on arrival, improved to the 70s and 80s after she checks in, lungs clear and nonlabored, no use of accessory muscles, no abnormal lung sounds and no hypoxemia Lab Test results independently reviewed as above. Pertinent findings: No leukocytosis or left shift, no signs of , primary electrolytes and renal function at baseline, anemia Independently reviewed EKG as above Imaging studies independently reviewed: CT angiogram with PE protocol demonstrates no evidence of pulmonary embolism or focal infiltrate, there are small bilateral pleural effusions Treatments: Re-evaluations: Discussion: Disposition: see below, along with detailed discharge instructions that have been reviewed with patient as well as indications for ED re-evaluation and additional outpatient follow up Dr zhu: Received turned over. Review patient's history physical. Reviewed workup up to this point. Performed my own independent exam. Patient's workup here in the emergency department very reassuring. CT scan shows no signs of pulmonary embolism. Troponins are negative x2. Has a nonischemic EKG. I did discuss this with her. We did discuss the lack of a definitive diagnosis. Will discharge patient home and have her follow-up with her primary doctor. She was given return precautions. She expressed understanding and agreement. Discharge Plan Departure Patient Disposition: Home Clinical Impression: Atypical chest pain Instructions: DI for Atypical Chest Pain Activity Restrictions/Additional Instructions: Do recommend that you continue to take all of your medications as directed. I also recommend you contact your primary doctor for a follow-up. Return to the emergency department for new or worsening symptoms. Prescriptions: No Action fluoxetine 40 mg capsule 40 mg PO DAILY acetaminophen 325 mg Tablet 975 mg PO PRN PRN (Reason: Pain) hydrocodone-acetaminophen 5-325 mg tablet 1 - 2 tab PO Q4-6H PRN (Reason: pain) Nurtec ODT 75 mg tablet,disintegrating 75 mg PO DAILY PRN (Reason: migraine) Referrals: Miscellaneous,Doctor[facility] [Primary Care Provider] - Stand Alone Forms: Patient Portal/API
--- NOTE | 2023-06-09 17:25 | DI.CT.S_ITS ---
PROCEDURE: CT ANGIO CHEST PE PROTOCOL INDICATIONS: chest pain, short of breath, recent surgery, recent TECHNIQUE: After the administration of intravenous contrast, 2 mm thick sections acquired from the pulmonary apices to the posterior costophrenic angles. 3-dimensional maximum intensity projection (MIP) coronal and sagittal reformats were then acquired through the thorax. For radiation dose reduction, the following was used: automated exposure control, adjustment of mA and/or kV according to patient size. COMPARISON: [facility], , PELVIC COMPLETE, 06/04/2023, 3:20. FINDINGS: Image quality: Excellent. Pulmonary arteries: Pulmonary arteries are normal in size, and demonstrate no intraluminal filling defects to suggest central pulmonary embolism. Lungs and pleura: Small bilateral pleural effusions are seen, with overlying atelectasis. No focal infiltrates are seen. No pneumothorax. Mediastinum: Heart size is normal, without pericardial effusion. There is a small amount residual thymus tissue seen, which is not regarded to be pathologic in a patient of this age. No mediastinal or hilar adenopathy. Thoracic aorta is normal in caliber and enhancement. Esophagus is normal in caliber, without hiatal hernia. Bones and chest wall: No suspicious bony lesions. Ribs and thoracic spine appear intact throughout. Thyroid gland demonstrates no significant abnormality. No axillary or supraclavicular adenopathy. Abdomen: Visualized upper abdominal solid organs appear normal in the early arterial phase of enhancement. IMPRESSION: Negative for pulmonary embolism. There are small bilateral pleural effusions. Dictated by: Eamon Nolasco M.D. on 06/09/2023 at 17:01 Approved by: Eamon Nolasco M.D. on 06/09/2023 at 17:03
[2023-06-09] MEDS: SODIUM CHLORIDE 0.9% 1,000 ML 1000 ML IV (17:34)
[2023-06-09 17:49] LABS: Add Manual Diff / Slide Review NO; Basophils Absolute Auto 0 /uL (0-100); Basophils Percent Auto 0.7 % (0-2); Eosinophils Absolute Auto 100 /uL (0-450); Eosinophils Percent Auto 1.5 % (2-4); Hematocrit 34.9 % (36-46); Lymphocytes Absolute Auto 2100 /uL (1100-4500); Lymphocytes Percent Auto 32.4 % (25-40); Mean Corpuscular HGB Conc 34.3 % (30-36); Mean Corpuscular Hemoglobin 31.5 PG (26-34); Monocytes Absolute Auto 400 /uL (0-900); Monocytes Percent Auto 5.8 % (3-14); Neutrophils Absolute Auto 3900 /uL (1500-7000); Neutrophils Percent Auto 59.6 % (50-75); Platelet Count 317 X10^3/uL (150-400); Red Cell Distribution Width 12.9 % (11.6-14.8); White Blood Cell Count 6.5 X10^3/uL (4.5-11.0)
[2023-06-09 18:01] LABS: Alanine Aminotransferase 16 IU/L (<35); Albumin 4.1 g/dL (3.5-5.0); Albumin Globulin Ratio 1.4 (1.0-2.8); Alkaline Phosphatase 57 U/L (38-126); Aspartate Aminotransferase 23 IU/L (14-36); BUN Creatinine Ratio 13.8 (6-22); Bilirubin Total 0.4 mg/dL (0.2-1.3); Blood Urea Nitrogen 9 mg/dL (7-17); Calcium 8.8 mg/dL (8.4-10.2); Carbon Dioxide 26 mmol/L (22-32); Chloride 105 mmol/L (98-107); Creatine Kinase 81 U/L (30-135); Estimated Glomerular Filt Rate > 60 mL/min (>60); Globulin 2.9 g/dL (1.7-4.1); Glucose 101 mg/dL (70-100); HEMOLYSIS < 15 (0-50); Potassium 3.6 mmol/L (3.4-5.1); Sodium 138 mmol/L (137-145)
[2023-06-09 18:13] LABS: NT-proBNP (BNP-Adult 18+) 356 pg/mL (<125); Troponin I < 0.012 ng/mL (0.01-0.034)
[2023-06-09 18:17] LABS: Procalcitonin 0.03 ng/mL (<0.5)
[2023-06-09 18:32] LABS: Influenza A - CEPHEID Flu A NEGATIVE (NEGATIVE); Influenza B - CEPHEID Flu B NEGATIVE (NEGATIVE); Respiratory Syncytial Virus Negative (Negative)
[2023-06-09 18:44] LABS: COVID-19 CEPHEID 4-PLEX PCR Negative (Negative)
[2023-06-09 21:11] LABS: Creatine Kinase 66 U/L (30-135)
[2023-06-09 21:24] LABS: Troponin I < 0.012 ng/mL (0.01-0.034)
== END 2023-06-09 21:38 | disposition home or self-care (01) ==
PROVIDERS: Emergency Medicine; Emergency Provider Emergency Medicine
DX: R07.89 Other chest pain (principal); R00.0 Tachycardia, unspecified; Z20.822 Contact with and (suspected) exposure to COVID-19
CPT/HCPCS: 0241U; 36415; 71275; 80053; 81003; 82550; 83880; 84145; 84484; 85025; 86850; 86900; 86901; 93005; 99284; Q9967

== ENCOUNTER → 2023-06-27 16:10 | Outpatient (CLI) | payer BC, SELFPAY ==
[2023-06-04 06:11] VITALS: BMI 22.6
[2023-06-27 18:31] LABS: HCG Quantitative /Beta subunit 9.4 mIU/mL
== END ==
PROVIDERS: Referring Provider Obstetrics & Gynecology; Visit Provider Obstetrics & Gynecology
DX: O03.9 Complete or unspecified spontaneous abortion without complication (principal)
CPT/HCPCS: 36415; 84702

== ENCOUNTER 2024-05-04 20:25 | Emergency (ER) | payer BC, SELFPAY ==
[2023-06-04 06:11] VITALS: BMI 22.6
[2024-05-04] VITALS (8 sets, daily range): BP systolic 92–137; BP diastolic 55–66; PULSE 68–80; RESP 17; TEMP 36.8; O2SAT 97–100; BMI 25.0
--- NOTE | 2024-05-04 20:43 | ED.HA ---
HPI - Headache General Chief Complaint: Headache Stated Complaint: migraine, vomiting Time Seen by Provider: 05/04/24 20:32 Mode of arrival: Ambulatory History of Present Illness HPI Narrative: 28-year-old female with history of migraine headaches presents for migraine headache similar to previous flare-ups. Patient has a prescription for Nurtec, but she states that she was not able to take it in time today to prevent her migraine from worsening. Associated nausea and vomiting. Related Data Home Medications Medication Instructions Recorded Confirmed acetaminophen 325 mg tablet 975 mg PO PRN PRN Pain 06/04/23 06/04/23 fluoxetine 40 mg capsule 40 mg PO DAILY 06/04/23 06/04/23 hydrocodone 5 mg-acetaminophen 325 1 - 2 tab PO Q4-6H PRN pain 06/04/23 06/04/23 mg tablet rimegepant 75 mg disintegrating 75 mg PO DAILY PRN migraine 06/04/23 06/04/23 tablet (Nurtec ODT) Allergies Allergy/AdvReac Type Severity Reaction Status Date / Time Penicillins Allergy Verified 05/04/24 20:36 metoclopramide [From Reglan] AdvReac Intermediate Anxiety Verified 05/04/24 20:36 Patient History Medical History Chronic migraine Asthma PCOS (polycystic ovarian syndrome) Infertility Surgical History History of section History of hysteroscopy History of appendectomy Social History household members: spouse, family and children Smoking Status: Never smoker alcohol intake: current Smoking Status: Never smoker alcohol intake frequency: a few times a month Alcohol type: wine Substance Use Type: does not use Exam Initial Vital Signs Initial Vital Signs: Vital Signs Temperature 98.2 F 05/04/24 20:36 Pulse Rate 76 05/04/24 20:36 Respiratory Rate 17 05/04/24 20:36 Blood Pressure 116/66 05/04/24 20:36 Pulse Oximetry 97 05/04/24 20:36 Oxygen Delivery Method Room Air 05/04/24 20:36 Const: Awake, alert, uncomfortable, in pain Cardiac: regular rate, regular rhythm RESP: unlabored, speaking in complete sentences without dyspnea GI: Soft, nontender, nondistended Skin: Warm, Dry, intact, no rashes Neuro: AO x3, CN II-XII grossly intact, moves all extremities Course Orders Ordered: Discontinued Medications Acetaminophen (Acetaminophen 325 Mg Tablet) 975 mg PO NOW ONE Stop: 05/04/24 20:42 Last Admin: 05/04/24 21:10 Dose: 975 mg Documented By: AB Dexamethasone (Dexamethasone 10 Mg/Ml Vial) 10 mg IV NOW ONE Stop: 05/04/24 22:01 Last Admin: 05/04/24 22:05 Dose: 10 mg Documented By: AB Diphenhydramine HCl (Diphenhydramine 50 Mg/Ml Vial) 50 mg IV NOW ONE Stop: 05/04/24 20:42 Last Admin: 05/04/24 20:55 Dose: 50 mg Documented By: AB Droperidol (Droperidol 5 Mg/2 Ml Vial) 2.5 mg IV NOW ONE Stop: 05/04/24 22:01 Last Admin: 05/04/24 22:06 Dose: 2.5 mg Documented By: Sodium Chloride (Normal Saline 0.9%) 1,000 mls @ 1,000 mls/hr IV BOLUS ONE Stop: 05/04/24 21:40 Last Infusion: 05/04/24 21:49 Dose: Infused Documented By: Admin: 05/04/24 20:55 Dose: 1,000 mls/hr Documented By: Ketorolac Tromethamine (Ketorolac 30 Mg/Ml Vial) 15 mg IV NOW ONE Stop: 05/04/24 20:42 Last Admin: 05/04/24 21:05 Dose: 15 mg Documented By: Ondansetron HCl (Ondansetron 4 Mg/2 Ml Inj) 4 mg IV NOW ONE Stop: 05/04/24 21:05 Last Admin: 05/04/24 21:11 Dose: 4 mg Documented By: Vital Signs Vital signs: Vital Signs - 8 hr 05/04/24 20:36 05/04/24 20:36 05/04/24 20:37 Temperature 98.2 F Pulse Rate 76 76 72 Respiratory Rate 17 Blood Pressure 116/66 Pulse Oximetry 97 98 98 Oxygen Delivery Method Room Air 05/04/24 20:37 05/04/24 21:00 05/04/24 21:01 Temperature Pulse Rate 80 Respiratory Rate Blood Pressure 99/56 L 137/63 Pulse Oximetry 100 Oxygen Delivery Method Room Air 05/04/24 21:01 05/04/24 21:30 05/04/24 21:31 Temperature Pulse Rate 77 76 75 Respiratory Rate Blood Pressure Pulse Oximetry 100 100 100 Oxygen Delivery Method Room Air 05/04/24 21:31 05/04/24 22:00 05/04/24 22:00 Temperature Pulse Rate 80 Respiratory Rate Blood Pressure 92/55 L 94/58 L Pulse Oximetry 99 Oxygen Delivery Method Room Air 05/04/24 22:30 05/04/24 22:30 Temperature Pulse Rate 68 Respiratory Rate Blood Pressure 101/62 Pulse Oximetry 97 Oxygen Delivery Method Room Air MDM - Headache Differential Diagnosis Differential diagnosis: Likely migraine, tension headache and headache MDM Narrative Medical decision making narrative: Migraine headache similar to previous migraines. Patient states she was not able to take her Nurtec in time to prevent the migrain from worsening. Since this is a typical migraine pattern for the patient no indication for CT imaging at this time. IV headache medications ordered. Patient improved with Tylenol, Toradol, Benadryl, IV fluids. Now able to tolerate p.o.. She states that her headache is mostly gone but would like additional medications while she was here in the emergency department. Decadron and droperidol ordered. Headache resolved after medication administration. She did report a little bit of jitteriness after receiving the 2nd dose of medications, which may be related to the droperidol. Patient was was counseled that she may take Benadryl at home before bed for her jittery sensation. She has Nurtec at home. ED return precautions discussed at bedside. Discharge Plan Departure Patient Disposition: Home Clinical Impression: Migraine Instructions: DI for Migraine Activity Restrictions/Additional Instructions: Continue your migraine medication as previously prescribed. You may take some Benadryl at home before bed for the jitteriness. Otherwise follow up with your headache doctor. Prescriptions: No Action fluoxetine 40 mg capsule 40 mg PO DAILY acetaminophen 325 mg Tablet 975 mg PO PRN PRN (Reason: Pain) hydrocodone-acetaminophen 5-325 mg tablet 1 - 2 tab PO Q4-6H PRN (Reason: pain) Nurtec ODT 75 mg tablet,disintegrating 75 mg PO DAILY PRN (Reason: migraine) Referrals: Miscellaneous,DoctorMD [Primary Care Provider] - Stand Alone Forms: Patient Portal/API
[2024-05-04] MEDS: diphenhydrAMINE 50 MG/ML VIAL IV (20:55)
[2024-05-04] MEDS: SODIUM CHLORIDE 0.9% 1,000 ML 1000 ML IV (20:55)
[2024-05-04] MEDS: KETOROLAC 30 MG/ML VIAL 15 MG IV (21:05)
[2024-05-04] MEDS: ACETAMINOPHEN 325 MG TABLET 975 MG PO (21:10)
[2024-05-04] MEDS: ONDANSETRON 4 MG/2 ML INJ IV (21:11)
--- NOTE | 2024-05-04 21:56 | PC.NURSE ---
PO challenge, given 1 can sprite.
[2024-05-04] MEDS: DEXAMETHASONE 10 MG/ML VIAL IV (22:05)
[2024-05-04] MEDS: DROPERIDOL 5 MG/2 ML VIAL 2.5 MG IV (22:06)
== END 2024-05-04 22:56 | disposition home or self-care (01) ==
PROVIDERS: Emergency Provider Emergency Medicine
DX: G43.909 Migraine, unspecified, not intractable, without status migrainosus (principal); R11.2 Nausea with vomiting, unspecified
CPT/HCPCS: 36415; 96361; 96374; 96375; 99284; J1100; J1200; J1790; J1885; J2405

== ENCOUNTER 2024-05-25 13:39 | Emergency (ER) | payer BC, SELFPAY ==
[2023-06-04 06:11] VITALS: BMI 22.6
[2024-05-25 13:43] VITALS: BP 104/63; PULSE 100; RESP 16; TEMP 37.2; O2SAT 97; BMI 23.4
--- NOTE | 2024-05-25 14:33 | ED.HA ---
HPI - Headache General Chief Complaint: Headache Stated Complaint: migraine Time Seen by Provider: 05/25/24 14:32 Source: patient, RN notes reviewed and old records reviewed Mode of arrival: Ambulatory Limitations: no limitations History of Present Illness HPI Narrative: 28-year-old currently under IV treatment with implantation last Sunday, history of migraines unable to take her Zyrtec. Developed migraines since yesterday with typical symptoms. Patient states frontal headache typically more on the right has not or sitting with nausea. Patient took some Dramamine which is helpful for the nausea. No fevers or chills no cold cough congestion. No other acute neurologic changes no difficulty with movement, no numbness tingling or weakness. Patient states no chest pain or shortness of breath. No urinary symptoms. No other issues with bowel movements. Patient states has a allergy to penicillin and had sounds like a dystonic reaction to Reglan in the past. No tobacco, occasional alcohol, no recreational drugs. Follows with Neurology, has appointment for Botox injections next month. Related Data Home Medications Medication Instructions Recorded Confirmed acetaminophen 325 mg tablet 975 mg PO PRN PRN Pain 06/04/23 06/04/23 fluoxetine 40 mg capsule 40 mg PO DAILY 06/04/23 06/04/23 hydrocodone 5 mg-acetaminophen 325 1 - 2 tab PO Q4-6H PRN pain 06/04/23 06/04/23 mg tablet rimegepant 75 mg disintegrating 75 mg PO DAILY PRN migraine 06/04/23 06/04/23 tablet (Nurtec ODT) Previous Rx's Medication Instructions Recorded ondansetron 4 mg disintegrating 4 mg PO Q6H PRN nausea and 05/25/24 tablet vomiting #10 tabs Allergies Allergy/AdvReac Type Severity Reaction Status Date / Time Penicillins Allergy Verified 05/25/24 13:46 metoclopramide [From Reglan] AdvReac Intermediate Anxiety Verified 05/25/24 13:46 Review of Systems Review of Systems ROS Unobtainable: All systems reviewed & are unremarkable except as noted in HPI and below Patient History Medical History Chronic migraine Asthma PCOS (polycystic ovarian syndrome) Infertility Surgical History History of section History of hysteroscopy History of appendectomy Social History household members: spouse, family and children Smoking Status: Never smoker alcohol intake: current Smoking Status: Never smoker alcohol intake frequency: a few times a month Alcohol type: wine Substance Use Type: does not use Exam Narrative Exam Narrative: GEN: well nourished, well appearing female, alert and oriented x 3, patient appears to be in mild distress. HEENT: Atraumatic, pupils are equal round reactive to light, positive photophobia, extraocular movements are intact, nares are clear, no facial droop, no meningeal signs. HEART: Regular rate and rhythm without murmur, clicks, rubs. LUNGS:Lungs clear to auscultation, no wheezes, rales, crackles, chest moves symmetrically ABD:bowel sounds normal, soft, non-tender, no guarding, rebound, rigidity, no masses noted, no hepatosplenomegaly :No CVA tenderness MSCL: Non-tender, no muscle atrophy, muscles strength 5/5 upper and lower extremities, full range of motion, normal gait NEURO:CN 2-12 intact, sensation normal. SKIN: No rash, erythema or other skin changes Initial Vital Signs Initial Vital Signs: Vital Signs Temperature 99 F 05/25/24 13:43 Pulse Rate 100 H 05/25/24 13:43 Respiratory Rate 16 05/25/24 13:43 Blood Pressure 104/63 05/25/24 13:43 Pulse Oximetry 97 05/25/24 13:43 Oxygen Delivery Method Room Air 05/25/24 13:43 Course Orders Ordered: Discontinued Medications Sodium Chloride (Normal Saline 0.9%) 1,000 mls @ 1,000 mls/hr IV BOLUS ONE Stop: 05/25/24 16:07 Last Infusion: 05/25/24 16:07 Dose: Infused Documented By: Admin: 05/25/24 15:24 Dose: 1,000 mls/hr Documented By: CRISTOBAL Acetaminophen (Ofirmev) 1,000 mg in 100 mls @ 400 mls/hr IV NOW ONE Stop: 05/25/24 15:23 Last Infusion: 05/25/24 15:47 Dose: Infused Documented By: Admin: 05/25/24 15:24 Dose: 400 mls/hr Documented By: CRISTOBAL Ondansetron HCl (Ondansetron 4 Mg/2 Ml Inj) 4 mg IV NOW ONE Stop: 05/25/24 15:09 Last Admin: 05/25/24 15:24 Dose: 4 mg Documented By: CRISTOBAL Vital Signs Vital signs: Vital Signs - 8 hr 05/25/24 13:43 05/25/24 16:08 Temperature 99 F Pulse Rate 100 H 101 H Respiratory Rate 16 18 Blood Pressure 104/63 87/51 L Pulse Oximetry 97 98 Oxygen Delivery Method Room Air Room Air MDM - Headache MDM Narrative Medical decision making narrative: 28-year-old female history of migraines, patient has been limited in what medication she can take as she was having IVF and had implantation last Sunday. Patient states this feels very similar to her usual migraine pattern. No other red flag changes or symptoms. Was given fluids, IV Tylenol and Zofran. On recheck patient is feeling improved she has 5/10 which he states is much better. She has had some low blood pressures but states she runs low, she is otherwise asymptomatic. She feels much improved and would like to return home. Discussed we will give a short course of Zofran. Discharge Plan Departure Patient Disposition: Home Clinical Impression: Migraine Instructions: DI for Migraine Activity Restrictions/Additional Instructions: Please follow up for recheck. I hope you continue to feel improved. Prescription for Zofran/ondansetron 1 tablet every 6 hours as needed for nausea/vomiting was sent to [facility] in [place]. Please return for fevers, rapidly worsening symptoms, sudden vision changes, new numbness tingling or weakness, passing out or other new or concerning changes. Prescriptions: New ondansetron 4 mg tablet,disintegrating 4 mg PO Q6H PRN (Reason: nausea and vomiting) Qty: 10 0RF No Action fluoxetine 40 mg capsule 40 mg PO DAILY acetaminophen 325 mg Tablet 975 mg PO PRN PRN (Reason: Pain) hydrocodone-acetaminophen 5-325 mg tablet 1 - 2 tab PO Q4-6H PRN (Reason: pain) Nurtec ODT 75 mg tablet,disintegrating 75 mg PO DAILY PRN (Reason: migraine) Referrals: Miscellaneous,Doctor, MD [Primary Care Provider] - Stand Alone Forms: Patient Portal/API
[2024-05-25] MEDS: SODIUM CHLORIDE 0.9% 1,000 ML 1000 ML IV (15:24)
[2024-05-25] MEDS: ACETAMINOPHEN IV 1,000 MG/100 ML VIAL 400 MG IV (15:24)
[2024-05-25] MEDS: ONDANSETRON 4 MG/2 ML INJ IV (15:24)
[2024-05-25 16:08] VITALS: BP 87/51; PULSE 101; RESP 18; O2SAT 98
--- NOTE | 2024-05-25 16:10 | PC.NURSE ---
The patients pressure was 87/51. She reported feeling better with a headache that went down to a normal level for her and she denied dizzyness and lightheadedness. She states that she feels better and is wanting to go home and take PO fluids, apap. provider to order delaneyan to go home
[2024-05-25 16:20] VITALS: BP 87/52; PULSE 105; RESP 20; O2SAT 99
== END 2024-05-25 16:27 | disposition home or self-care (01) ==
PROVIDERS: Emergency Provider Emergency Medicine
DX: G43.909 Migraine, unspecified, not intractable, without status migrainosus (principal)
CPT/HCPCS: J0136; J2405

== ENCOUNTER 2024-05-25 22:27 | Emergency (ER) | payer BC, SELFPAY ==
[2023-06-04 06:11] VITALS: BMI 22.6
[2024-05-25 22:33] VITALS: BP 115/65; PULSE 65; RESP 18; TEMP 36.1; O2SAT 98; BMI 27.4
--- NOTE | 2024-05-25 22:42 | PC.NURSE ---
Pt reports IVF implantation last week on Sunday.
--- NOTE | 2024-05-25 22:47 | ED_ITS ---
HPI - Headache General Chief Complaint: Headache Stated Complaint: returning; migraine Time Seen by Provider: 05/25/24 22:33 Source: patient Mode of arrival: Ambulatory Limitations: no limitations History of Present Illness HPI Narrative: Patient is a 28-year-old female. Last week she was underwent in vitro fertilization. Does have history of migraines. Because of her status she was unable to take the medicines she normally takes for her headaches. She was seen here earlier today for what she describes as a migraine. Received medications. States that her symptoms improved and she was able to go home and sleep but now her symptoms have returned again. She states that it feels like 1 of her prior migraines. She was not having any abdominal pain or vaginal bleeding for discharge. Related Data Home Medications Medication Instructions Recorded Confirmed acetaminophen 325 mg tablet 975 mg PO PRN PRN Pain 06/04/23 06/04/23 fluoxetine 40 mg capsule 40 mg PO DAILY 06/04/23 06/04/23 hydrocodone 5 mg-acetaminophen 325 1 - 2 tab PO Q4-6H PRN pain 06/04/23 06/04/23 mg tablet rimegepant 75 mg disintegrating 75 mg PO DAILY PRN migraine 06/04/23 06/04/23 tablet (Nurtec ODT) Previous Rx's Medication Instructions Recorded ondansetron 4 mg disintegrating 4 mg PO Q6H PRN nausea and 05/25/24 tablet vomiting #10 tabs Allergies Allergy/AdvReac Type Severity Reaction Status Date / Time Penicillins Allergy Verified 05/25/24 13:46 metoclopramide [From Reglan] AdvReac Intermediate Anxiety Verified 05/25/24 13:46 Review of Systems Review of Systems Narrative: See HPI Patient History Medical History Chronic migraine Asthma PCOS (polycystic ovarian syndrome) Infertility Surgical History History of section History of hysteroscopy History of appendectomy Social History household members: spouse, family and children Smoking Status: Never smoker alcohol intake: current Smoking Status: Never smoker alcohol intake frequency: a few times a month Alcohol type: wine Substance Use Type: does not use Exam Initial Vital Signs Initial Vital Signs: Vital Signs Temperature 97 F L 05/25/24 22:33 Pulse Rate 65 05/25/24 22:33 Respiratory Rate 18 05/25/24 22:33 Blood Pressure 115/65 05/25/24 22:33 Pulse Oximetry 98 05/25/24 22:33 Oxygen Delivery Method Room Air 05/25/24 22:33 Const General: cooperative, comfortable and No ill appearing HENMT Head: normal to inspection and normocephalic Resp Effort & Inspection: normal respiratory effort Auscultation: clear to auscultation bilaterally Cardio Rate: regular rate Rhythm: regular rhythm Skin General: no rashes or lesions noted Neuro General: patient alert, patient awake and moves all extremities Extrem General: capillary refill normal Course Orders Ordered: Discontinued Medications Diphenhydramine HCl (Diphenhydramine 50 Mg/Ml Vial) 25 mg IV NOW ONE Stop: 05/25/24 22:49 Last Admin: 05/25/24 23:02 Dose: 25 mg Documented By: AMAN Acetaminophen (Ofirmev) 1,000 mg in 100 mls @ 400 mls/hr IV NOW ONE Stop: 05/25/24 23:34 Last Infusion: 05/25/24 23:45 Dose: Infused Documented By: Admin: 05/25/24 23:23 Dose: 400 mls/hr Documented By: AMAN Metoclopramide HCl (Metoclopramide 10 Mg/2 Ml Inj) 10 mg IV NOW ONE Stop: 05/25/24 22:49 Last Admin: 05/25/24 23:02 Dose: Not Given Documented By: AMAN Vital Signs Vital signs: Vital Signs - 8 hr 05/25/24 22:33 05/26/24 00:42 05/26/24 01:00 Temperature 97 F L Pulse Rate 65 87 84 Respiratory Rate 18 16 Blood Pressure 115/65 113/65 113/65 Pulse Oximetry 98 98 97 Oxygen Delivery Method Room Air Room Air Room Air MDM - Headache MDM Narrative Medical decision making narrative: Somewhat limited on the medications that the patient can receive based on her status. She states that the Triptan medication help her symptoms qu ite a bit but it causes her to have some side effects so her doctor and her decided to use other medications. Review this medication shows that it was not the 1st line medication in and I discuss this with her. Initially ordered Benadryl and Reglan. The patient declined Reglan. She states that Reglan in the past has caused her to become very anxious. Informed her that it is the Reglan that treats the headache in the Benadryl is the medication to try to help with some of the anxiety. She stated that she would like to avoid the Reglan as much as possible. She was then given another dose of IV Tylenol and reports a vast improvement of her headache. Advised that she contact her primary doctor/OB provider to discuss how she should treat her migraine headaches in the future given . Discharge Plan Departure Patient Disposition: Home Clinical Impression: Migraine Instructions: DI for Migraine Activity Restrictions/Additional Instructions: I do recommend that you contact your OB provider to discuss the headaches that you been having to come up with a plan appropriate for your . You can continue to take Tylenol as needed. Return to the emergency department for new symptoms. Prescriptions: No Action fluoxetine 40 mg capsule 40 mg PO DAILY acetaminophen 325 mg Tablet 975 mg PO PRN PRN (Reason: Pain) hydrocodone-acetaminophen 5-325 mg tablet 1 - 2 tab PO Q4-6H PRN (Reason: pain) Nurtec ODT 75 mg tablet,disintegrating 75 mg PO DAILY PRN (Reason: migraine) ondansetron 4 mg tablet,disintegrating 4 mg PO Q6H PRN (Reason: nausea and vomiting) Qty: 10 0RF Referrals: Miscellaneous,Doctor, MD [Primary Care Provider] - Stand Alone Forms: Patient Portal/API
[2024-05-25] MEDS: diphenhydrAMINE 50 MG/ML VIAL 25 MG IV (23:02)
[2024-05-25] MEDS: ACETAMINOPHEN IV 1,000 MG/100 ML VIAL 400 MG IV (23:23)
[2024-05-26 00:42] VITALS: BP 113/65; PULSE 87; O2SAT 98
[2024-05-26 01:00] VITALS: BP 113/65; PULSE 84; RESP 16; O2SAT 97
== END 2024-05-26 01:03 | disposition home or self-care (01) ==
PROVIDERS: Emergency Provider Emergency Medicine
DX: G43.909 Migraine, unspecified, not intractable, without status migrainosus (principal)
CPT/HCPCS: 96365; 96375; 99283; 99284; J0136; J1200; J2405

== ENCOUNTER → 2024-06-02 15:20 | Outpatient (CLI) | payer BC, SELFPAY ==
[2023-06-04 06:11] VITALS: BMI 22.6
[2024-06-02 18:18] LABS: HCG Quantitative /Beta subunit 173.89 mIU/mL
[2024-06-02 18:32] LABS: Thyroid Stimulating Hormone 0.766 uIU/mL (0.47-4.68)
== END ==
PROVIDERS: Referring Provider Obstetrics & Gynecology Reproductive Endocrinology; Visit Provider Obstetrics & Gynecology Reproductive Endocrinology
DX: Z32.00 Encounter for pregnancy test, result unknown (principal); Z13.29 Encounter for screening for other suspected endocrine disorder
CPT/HCPCS: 36415; 84443; 84702

== ENCOUNTER 2024-06-18 21:35 | Emergency (ER) | payer BC, SELFPAY ==
[2023-06-04 06:11] VITALS: BMI 22.6
[2024-06-18 21:52] VITALS: BP 99/68; PULSE 90; RESP 14; TEMP 37.1; O2SAT 100; BMI 24.4
[2024-06-18] MEDS: SODIUM CHLORIDE 0.9% 1,000 ML 1000 ML IV (22:26)
[2024-06-18] MEDS: PROMETHAZINE 25 MG SUPP PR (22:26)
--- NOTE | 2024-06-18 22:56 | ED_ITS ---
HPI - Nausea/Vomiting/Diarrhea General Chief complaint: Nausea/Vomiting/Diarrhea Stated complaint: , migraine, throwing up for 2 days Time Seen by Provider: 06/18/24 22:36 Source: patient Mode of arrival: Ambulatory History of Present Illness HPI Narrative: 28-year-old female currently at 6-1/2 weeks, underwent IVF for this , heartbeat cerna noted by ultrasound today per patient, due date 02/07/2024, still having early care with her fertility specialist in [place], anticipating transfer to [facility] obstetric care later this . She has history of recurrent headaches right-sided since age 5, has been followed by Neurology, most recently had directly observed injectable Imitrex that she seemed to tolerate well with no side effects, we will be taking oral Imitrex, awaiting prescription. Now has recurrence and worsening right- sided typical headache, here for injected Imitrex. She denies abdominal discomfort, denies leaking of fluid, denies vaginal bleeding symptoms. No fev ers or chills. No focal weakness to face arm or leg. She does have some photophobia, typical of her migraine headaches. Related Data Home Medications Medication Instructions Recorded Confirmed acetaminophen 325 mg tablet 975 mg PO PRN PRN Pain 06/04/23 06/04/23 fluoxetine 40 mg capsule 40 mg PO DAILY 06/04/23 06/04/23 hydrocodone 5 mg-acetaminophen 325 1 - 2 tab PO Q4-6H PRN pain 06/04/23 06/04/23 mg tablet rimegepant 75 mg disintegrating 75 mg PO DAILY PRN migraine 06/04/23 06/04/23 tablet (Nurtec ODT) Previous Rx's Medication Instructions Recorded ondansetron 4 mg disintegrating 4 mg PO Q6H PRN nausea and 05/25/24 tablet vomiting #10 tabs Allergies Allergy/AdvReac Type Severity Reaction Status Date / Time Penicillins Allergy Verified 05/25/24 13:46 metoclopramide [From Reglan] AdvReac Intermediate Anxiety Verified 05/25/24 13:46 Review of Systems Review of Systems Narrative: See HPI Patient History Medical History Chronic migraine Asthma PCOS (polycystic ovarian syndrome) Infertility Surgical History History of section History of hysteroscopy History of appendectomy Social History household members: spouse, family and children Smoking Status: Never smoker alcohol intake: current Smoking Status: Never smoker alcohol intake frequency: holidays/special occasions only Alcohol type: wine Substance Use Type: does not use Exam Narrative Exam Narrative: GENERAL: Well-developed patient, in mild distress. HEAD: Atraumatic. Normocephalic. EYES: Pupils equal round and reactive. Extraocular motions intact. No scleral i cterus. No injection or drainage. ENT: Nose without bleeding, purulent drainage. Throat without erythema, tonsillar hypertrophy or exudate. Airway patent. NECK: Trachea midline. Non tender CARDIOVASCULAR: Regular rate and rhythm without murmurs, gallops, or rubs. RESPIRATORY: Clear to auscultation. Breath sounds equal bilaterally. No wheezes, rales, or rhonchi. GASTROINTESTINAL: Abdomen soft, non-tender, nondistended. EXTREMITIES: No edema or joint tenderness. BACK: Nontender without deformity or crepitance. No flank tenderness. NEURO: AOx3. Motor functions grossly nonfocal SKIN: No rash or erythema of visible areas Initial Vital Signs Initial Vital Signs: Vital Signs Temperature 98.7 F 06/18/24 21:52 Pulse Rate 90 06/18/24 21:52 Respiratory Rate 14 06/18/24 21:52 Blood Pressure 99/68 06/18/24 21:52 Pulse Oximetry 100 06/18/24 21:52 Oxygen Delivery Method Room Air 06/18/24 21:52 Course Orders Ordered: Discontinued Medications Diphenhydramine HCl (Diphenhydramine 50 Mg/Ml Vial) 25 mg IV NOW ONE Stop: 06/18/24 23:34 Last Admin: 06/18/24 23:39 Dose: 25 mg Documented By: Sodium Chloride (Normal Saline 0.9%) 1,000 mls @ 1,000 mls/hr IV BOLUS ONE Stop: 06/18/24 23:13 Last Infusion: 06/18/24 23:00 Dose: Infused Documented By: Admin: 06/18/24 22:26 Dose: 1,000 mls/hr Documented By: Promethazine HCl (Promethazine 25 Mg Supp) 25 mg CO NOW ONE Stop: 06/18/24 22:14 Last Admin: 06/18/24 22:26 Dose: 25 mg Documented By: Sumatriptan Succinate (Sumatriptan 6 Mg/0.5 Ml Vial) 6 mg SUBCUT NOW ONE Stop: 06/18/24 23:05 Last Admin: 06/18/24 23:21 Dose: 6 mg Documented By: Vital Signs Vital signs: Vital Signs - 8 hr 06/18/24 21:52 06/19/24 00:29 Temperature 98.7 F Pulse Rate 90 99 H Respiratory Rate 14 18 Blood Pressure 99/68 99/54 L Pulse Oximetry 100 100 Oxygen Delivery Method Room Air Room Air MDM - Nausea/Vomiting/Diarrhea MDM Narrative Medical decision making narrative: Current , recurrent headaches, cleared for injectable Imitrex after clinic observed therapy, apparently he is given with injected Benadryl. These are both administered. Headache symptoms gone. Tolerated well. Discharged home with mother. 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 Return precautions discussed. Discharge Plan Departure Patient Disposition: Home Clinical Impression: Headache, migraine, Activity Restrictions/Additional Instructions: History of recurrent migraine headaches since childhood, followed by Neurology, currently , had observed injected Imitrex trial that was felt to be safe, here for abortive treatment injectable Imitrex, given with Benadryl in the past. These injections were given, tolerated well, headache resolved. 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 Return to this/nearest emergency department for any change worsening symptoms or any concerns prior Prescriptions: No Action fluoxetine 40 mg capsule 40 mg PO DAILY acetaminophen 325 mg Tablet 975 mg PO PRN PRN (Reason: Pain) hydrocodone-acetaminophen 5-325 mg tablet 1 - 2 tab PO Q4-6H PRN (Reason: pain) Nurtec ODT 75 mg tablet,disintegrating 75 mg PO DAILY PRN (Reason: migraine) ondansetron 4 mg tablet,disintegrating 4 mg PO Q6H PRN (Reason: nausea and vomiting) Qty: 10 0RF Referrals: Miscellaneous,Doctor, MD [Primary Care Provider] - Stand Alone Forms: Patient Portal/API
[2024-06-18] MEDS: SUMAtriptan 6 MG/0.5 ML VIAL SUBCUT (23:21)
[2024-06-18] MEDS: diphenhydrAMINE 50 MG/ML VIAL 25 MG IV (23:39)
[2024-06-19 00:29] VITALS: BP 99/54; PULSE 99; RESP 18; O2SAT 100
== END 2024-06-19 00:58 | disposition home or self-care (01) ==
PROVIDERS: Emergency Provider Emergency Medicine
DX: O26.891 Other specified pregnancy related conditions, first trimester (principal); G43.909 Migraine, unspecified, not intractable, without status migrainosus; Z3A.01 Less than 8 weeks gestation of pregnancy
CPT/HCPCS: 36415; 96361; 96372; 96374; 99284; J1200; J3030

== ENCOUNTER 2024-08-11 13:18 | Emergency (ER) | payer BC, SELFPAY ==
[2023-06-04 06:11] VITALS: BMI 22.6
[2024-08-11] VITALS (8 sets, daily range): BP systolic 95–100; BP diastolic 55–62; PULSE 78–90; RESP 17; TEMP 36.7; O2SAT 98–100; BMI 26.0
--- NOTE | 2024-08-11 13:26 | DI.US.S_ITS ---
PROCEDURE: US OB LIMITED INDICATIONS: 14 weeks , bright red bleeding, clots OUTSIDE/PRIOR DATING DATA: IVF 02/06/2025 working SU[facility] First dating scan (date and location): 08/11/2024. TECHNIQUE: Real-time scanning was performed of the fetus, with image documentation. COMPARISON: None. FINDINGS: A single living intrauterine gestation is present. Presentation: Vertex. Placenta: Placental position is posterior, without previa. Amniotic fluid index: 12.6 cm, normal range is 5-24 cm. Single deepest vertical pocket is 4.4 cm. heart rate: 145 beats per minute. Maternal cervical canal: 2.8 cm long. Normal lower limit is 2.5 cm. BPD is 2.9 cm, 15 weeks and 2 days Head circumference is 10.6 cm, 15 weeks Abdominal circumference is 7.7 cm, 14 weeks and 1 day Femur length is 1.4 cm, 14 weeks Clinically estimated gestational age: 14 weeks and 3 days Estimated gestational age from initial scan: 14 weeks and 4 days there is Prominent vascularity in the deep portion of the placenta. No large hematoma. Suspect superior placental [place] . IMPRESSION: No large hematoma is identified. Prominent vascularity in the deep portion of the placenta. Close attention on follow-up on anatomy scan is suggested for any placental implantation abnormalities. Living intrauterine gestation. Dictated by: Chance Strong M.D. on 08/11/2024 at 14:39 Approved by: Chance Strong M.D. on 08/11/2024 at 14:42
[2024-08-11 13:48] LABS: Add Manual Diff / Slide Review NO; Basophils Absolute Auto 0 /uL (0-100); Basophils Percent Auto 0.5 % (0-2); Eosinophils Absolute Auto 200 /uL (0-450); Eosinophils Percent Auto 1.8 % (2-4); Hemoglobin 12.5 g/dL (12.0-16.0); Lymphocytes Absolute Auto 2700 /uL (1100-4500); Lymphocytes Percent Auto 29.7 % (25-40); Mean Corpuscular HGB Conc 33.8 % (30-36); Mean Corpuscular Volume 94.6 fL (80-100); Monocytes Absolute Auto 500 /uL (0-900); Neutrophils Absolute Auto 5700 /uL (1500-7000); Platelet Count 332 X10^3/uL (150-400); Red Blood Cell Count 3.91 X10^6/uL (4.0-5.2); White Blood Cell Count 9.1 X10^3/uL (4.5-11.0)
[2024-08-11 13:56] LABS: Alanine Aminotransferase 22 IU/L (<35); Albumin 4.2 g/dL (3.5-5.0); Albumin Globulin Ratio 1.4 (1.0-2.8); Alkaline Phosphatase 59 U/L (38-126); Aspartate Aminotransferase 29 IU/L (14-36); BUN Creatinine Ratio 10.2 (6-22); Bilirubin Total 0.3 mg/dL (0.2-1.3); Blood Urea Nitrogen 6 mg/dL (7-17); Carbon Dioxide 23 mmol/L (22-32); Chloride 105 mmol/L (98-107); Estimated Glomerular Filt Rate > 60 mL/min (>60); Glucose 97 mg/dL (70-100); HEMOLYSIS < 15 (0-50); Potassium 3.4 mmol/L (3.4-5.1); Sodium 136 mmol/L (137-145); Total Protein 7.2 g/dL (6.3-8.2)
[2024-08-11 14:38] LABS: HCG Quantitative /Beta subunit 35709 mIU/mL
--- NOTE | 2024-08-11 15:40 | ED.PREGNANCY ---
HPI - General Chief complaint: Vaginal Bleeding Stated complaint: 14 weeks , bleeding, passing clots , sharp pain Time Seen by Provider: 08/11/24 15:35 Source: patient Mode of arrival: Ambulatory History of Present Illness HPI Narrative: Patient 29-year-old female G3 P 2, IVF currently at 14 weeks presenting today with some abdominal cramping bleeding. She reports that she woke up this morning soaked in blood. He has had some mild cramping. Passing clots about a quarter-size. She previously had significant bleeding at a miscarriage in May of 2023. She required OR. So she was concerned today with bleeding. She is currently awake alert Related Data Home Medications Medication Instructions Recorded Confirmed acetaminophen 325 mg tablet 975 mg PO PRN PRN Pain 06/04/23 06/04/23 fluoxetine 40 mg capsule 40 mg PO DAILY 06/04/23 06/04/23 hydrocodone 5 mg-acetaminophen 325 1 - 2 tab PO Q4-6H PRN pain 06/04/23 06/04/23 mg tablet rimegepant 75 mg disintegrating 75 mg PO DAILY PRN migraine 06/04/23 06/04/23 tablet (Nurtec ODT) Previous Rx's Medication Instructions Recorded ondansetron 4 mg disintegrating 4 mg PO Q6H PRN nausea and 05/25/24 tablet vomiting #10 tabs Allergies Allergy/AdvReac Type Severity Reaction Status Date / Time Penicillins Allergy Childhood Verified 08/11/24 13:21 rxn, unknown metoclopramide [From Reglan] AdvReac Intermediate Anxiety Verified 08/11/24 13:21 Exam Initial Vital Signs Initial Vital Signs: Vital Signs Temperature 98.1 F 08/11/24 13:21 Pulse Rate 81 08/11/24 13:21 Respiratory Rate 17 08/11/24 13:21 Blood Pressure 100/62 08/11/24 13:21 Pulse Oximetry 100 08/11/24 13:21 Oxygen Delivery Method Room Air 08/11/24 13:21 GENERAL: Alert well-appearing 29-year-old female sitting upright reading a book HEENT: Head atraumatic,EOMI, pupils reactive, face symmetric, moist mucous membranes CARDIOVASCULAR: Regular rate and rhythm without murmurs, rubs or gallops. RESPIRATORY: Breath sounds equal bilaterally, no wheezes rales or rhonchi. ABDOMEN: Soft, nontender. Normoactive bowel sounds all 4 quadrants. No guarding or rebound. PELVIC: External genitalia is normal, small amount of vaginal bleeding, no vaginal discharge, no odor EXTREMITIES: Normal range of motion, no clubbing or edema. Neurovascularly intact NEUROLOGICAL: Alert and oriented x4.Normal gait and speech. SKIN: Warm, dry, no laceration, no petechiae, no rashes or lesions. Course Orders Ordered: ED Orders 08/11/24 13:26 US OB limited Stat 08/11/24 13:32 Complete Blood Count AUTO DIFF Stat Comprehensive Metabolic Panel Stat HCG Quantitative /Beta subunit Stat Type and Screen Stat Vital Signs Vital signs: Vital Signs - 8 hr 08/11/24 13:21 08/11/24 14:19 08/11/24 14:20 Temperature 98.1 F Pulse Rate 81 84 85 Respiratory Rate 17 Blood Pressure 100/62 Pulse Oximetry 100 99 99 Oxygen Delivery Method Room Air 08/11/24 14:20 08/11/24 14:30 08/11/24 14:30 Temperature Pulse Rate 78 Respiratory Rate Blood Pressure 98/55 L 95/58 L Pulse Oximetry 98 Oxygen Delivery Method Room Air 08/11/24 15:00 08/11/24 16:18 08/11/24 16:19 Temperature Pulse Rate 83 90 87 Respiratory Rate Blood Pressure Pulse Oximetry 98 99 99 Oxygen Delivery Method 08/11/24 16:20 Temperature Pulse Rate Respiratory Rate Blood Pressure 95/55 L Pulse Oximetry Oxygen Delivery Method MDM - OB/Uterine Contractions Lab Data 08/11/24 13:32 08/11/24 13:32 Labs: Lab Results 08/11/24 Range/Units 13:32 WBC 9.1 (4.5-11.0) X10^3/uL RBC 3.91 L (4.0-5.2) X10^6/uL Hgb 12.5 (12.0-16.0) g/dL Hct 37.0 (36-46) % MCV 94.6 (80-100) fL MCH 32.0 (26-34) PG MCHC 33.8 (30-36) % RDW 13.0 (11.6-14.8) % Plt Count 332 (150-400) X10^3/uL Neut % (Auto) 62.0 (50-75) % Lymph % (Auto) 29.7 (25-40) % Stanton % (Auto) 6.0 (3-14) % Eos % (Auto) 1.8 L (2-4) % Baso % (Auto) 0.5 (0-2) % Neut # (Auto) 5700 (6833-5551) /uL Lymph # (Auto) 2700 (3565-1044) /uL Stanton # (Auto) 500 (0-900) /uL Eos # (Auto) 200 (0-450) /uL Baso # (Auto) 0 (0-100) /uL Sodium 136 L (137-145) mmol/L Potassium 3.4 (3.4-5.1) mmol/L Chloride 105 (98-107) mmol/L Carbon Dioxide 23 (22-32) mmol/L BUN 6 L (7-17) mg/dL Creatinine 0.59 (0.52-1.04) mg/dL Estimated GFR > 60 (>60) mL/min BUN/Creatinine Ratio 10.2 (6-22) Glucose 97 (70-100) mg/dL Calcium 9.0 (8.4-10.2) mg/dL Total Bilirubin 0.3 (0.2-1.3) mg/dL AST 29 (14-36) IU/L ALT 22 (<35) IU/L Alkaline Phosphatase 59 (38-126) U/L Total Protein 7.2 (6.3-8.2) g/dL Albumin 4.2 (3.5-5.0) g/dL Globulin 3.0 (1.7-4.1) g/dL Albumin/Globulin Ratio 1.4 (1.0-2.8) HCG, Quant 57915 mIU/mL Blood Type O Positive Antibody Screen Negative Urine Dip Bedside Urine Glucose Negative Bedside Urine Bilirubin - Negative Bedside Urine Ketone - Negative Urine Specific [place] 1.005 Bedside Urine Occult Blood +++ Bedside Urine pH 6.0 Bedside Urine Protein - Negative Bedside Urine Urobilinogen - Negative Bedside Urine Nitrite - Negative Bedside Urine Leukocytes - Negative Esterase Imaging Data US - OB: Radiologist's Impression: PROCEDURE: US OB LIMITED INDICATIONS: 14 weeks , bright red bleeding, clots OUTSIDE/PRIOR DATING DATA: IVF 02/06/2025 working [facility] First dating scan (date and location): 08/11/2024. TECHNIQUE: Real-time scanning was performed of the fetus, with image documentation. COMPARISON: None. FINDINGS: A single living intrauterine gestation is present. Presentation: Vertex. Placenta: Placental position is posterior, without previa. Amniotic fluid index: 12.6 cm, normal range is 5-24 cm. Single deepest vertical pocket is 4.4 cm. heart rate: 145 beats per minute. Maternal cervical canal: 2.8 cm long. Normal lower limit is 2.5 cm. BPD is 2.9 cm, 15 weeks and 2 days Head circumference is 10.6 cm, 15 weeks Abdominal circumference is 7.7 cm, 14 weeks and 1 day Femur length is 1.4 cm, 14 weeks Clinically estimated gestational age: 14 weeks and 3 days Estimated gestational age from initial scan: 14 weeks and 4 days there is Prominent vascularity in the deep portion of the placenta. No large hematoma. Suspect superior placental [place] . IMPRESSION: No large hematoma is identified. Prominent vascularity in the deep portion of the placenta. Close attention on follow-up on anatomy scan is suggested for any placental implantation abnormalities. Living intrauterine gestation. Dictated by: Chance Strong M.D. on 08/11/2024 at 14:39 Approved by: Chance Strong M.D. on 08/11/2024 at 14:42 MDM Narrative Medical decision making narrative: MDM CC: Vaginal bleeding 14 weeks Complicating co-morbidities: IVF , prior miscarriage with significant hemorrhage and bleeding in May 2023 Medical records reviewed: Previous ED visits Differential considered: Miscarriage subchorionic bleeding, hematoma Exam documented above, pertinent findings include: Awake alert female reading book abdomen soft mild vaginal bleeding on exam no copious amounts Lab Test results independently reviewed as above. Pertinent findings: Hemoglobin 12.5 hematocrit 37.0 O positive HCG 35,709 Independently reviewed EKG as above Imaging studies independently reviewed: Ultrasound shows 14 weeks 4 days gestational I you P heart rate 145 prominent vascularity in deep portion of the placenta no large hematoma suspect superior placental lakes Treatments: None Re-evaluations: Patient not having any significant bleeding in the emergency department after being here for 3 hours Discussion: Patient 29-year-old female presenting today with vaginal bleeding. Currently 14 weeks . It sounds like she did have a large amount of bleeding when she woke up she is has gone through about 1-2 pads since then. On exam she does not have copious amounts of bleeding. Hemoglobin hematocrit stable. Pressure is noted to be slightly low however she reports low blood pressure at baseline which is confirmed compare to her previous pressure. She has had blood pressure in the 80s and 90s, which is normal. Her current blood pressure is 95/58 she has not dizzy lightheaded she has not passed out her abdomen is soft. At this time recommend outpatient follow-up she is established care with OBGYN in [facility] Discharge Plan Departure Patient Disposition: Home Clinical Impression: Vaginal bleeding Instructions: DI for Vaginal Bleeding During Activity Restrictions/Additional Instructions: HCG 35,709 At this time please call and follow-up with your OBGYN, call tomorrow to schedule appointment. Ultrasound is reassuring today. Monitor your bleeding. You also will need your hCG rechecked in 48 hours, this can be done with your OB if you are having bleeding more than 2 pads in 1 hour increased abdominal pain dizziness lightheadedness or passing out EMS return to the emergency department Prescriptions: No Action fluoxetine 40 mg capsule 40 mg PO DAILY acetaminophen 325 mg Tablet 975 mg PO PRN PRN (Reason: Pain) hydrocodone-acetaminophen 5-325 mg tablet 1 - 2 tab PO Q4-6H PRN (Reason: pain) Nurtec ODT 75 mg tablet,disintegrating 75 mg PO DAILY PRN (Reason: migraine) ondansetron 4 mg tablet,disintegrating 4 mg PO Q6H PRN (Reason: nausea and vomiting) Qty: 10 0RF Referrals: Miscellaneous,Doctor, MD [Primary Care Provider] - Stand Alone Forms: Patient Portal/API/Survey
--- NOTE | 2024-08-11 16:13 | PC.NURSE ---
dr bartlett aware of urine dip results. does not want to order micro at this time.
== END 2024-08-11 16:22 | disposition home or self-care (01) ==
PROVIDERS: Emergency Provider Emergency Medicine
DX: O20.9 Hemorrhage in early pregnancy, unspecified (principal); Z3A.14 14 weeks gestation of pregnancy
CPT/HCPCS: 36415; 76815; 80053; 81003; 84702; 85025; 86850; 86900; 86901; 99283; 99284

== ENCOUNTER 2024-09-03 15:50 | Emergency (ER) | payer BC, SELFPAY ==
[2023-06-04 06:11] VITALS: BMI 22.6
[2024-09-03] VITALS (22 sets, daily range): BP systolic 91–121; BP diastolic 51–64; PULSE 101–126; RESP 12–31; TEMP 36.9; O2SAT 96–100; BMI 26.0
--- NOTE | 2024-09-03 16:09 | DI.US.S_ITS ---
PROCEDURE: US OB LIMITED INDICATIONS: 18wks, no felt movement x 1 wk, vaginal bleeding since 08/11 OUTSIDE/PRIOR DATING DATA: Working [facility] by GRAHAM F is 02/06/2025 TECHNIQUE: Real-time scanning was performed of the fetus, with image documentation. COMPARISON: [facility], , OB LIMITED, 08/11/2024, 13:38. FINDINGS: A single living intrauterine gestation is present. Presentation: Vertex. Placenta: Placental position is posterior, without previa. Amniotic fluid index: 10.2 cm, normal range is 5-24 cm. Single deepest vertical pocket is 3.1 cm. heart rate: 150 beats per minute. Maternal cervical canal: 6.7 cm long. Normal lower limit is 2.5 cm. Clinically estimated gestational age: 17 weeks and 5 days Possible vessels are seen adjacent to the placenta and crossing near the internal os. There are prominent venous lakes. Possible clot seen near the internal os. IMPRESSION: Living intrauterine gestation in vertex presentation. Normal CHARLES. Prominent venous lakes and abnormal appearing vessels on the surface and adjacent to the placenta, including near the internal os and inferior uterus. There may be clot at the internal os measuring 4.1 x 2.7 cm and possible vasa previa. Close attention on follow-up with obstetric evaluation are suggested, including endovaginal imaging on follow-up during 20 week anatomy scan. Dictated by: Chance Strong M.D. on 09/03/2024 at 18:09 Approved by: Chance Strong M.D. on 09/03/2024 at 18:15
[2024-09-03 16:28] LABS: Add Manual Diff / Slide Review NO; Basophils Absolute Auto 100 /uL (0-100); Basophils Percent Auto 1.4 % (0-2); Eosinophils Absolute Auto 100 /uL (0-450); Eosinophils Percent Auto 1.2 % (2-4); Hematocrit 35.8 % (36-46); Hemoglobin 12.6 g/dL (12.0-16.0); Lymphocytes Absolute Auto 1700 /uL (1100-4500); Lymphocytes Percent Auto 16.4 % (25-40); Mean Corpuscular HGB Conc 35.2 % (30-36); Mean Corpuscular Hemoglobin 32.8 PG (26-34); Mean Corpuscular Volume 93.2 fL (80-100); Monocytes Absolute Auto 500 /uL (0-900); Monocytes Percent Auto 4.8 % (3-14); Neutrophils Absolute Auto 7800 /uL (1500-7000); Neutrophils Percent Auto 76.2 % (50-75); Platelet Count 336 X10^3/uL (150-400); Red Blood Cell Count 3.84 X10^6/uL (4.0-5.2); Red Cell Distribution Width 13.2 % (11.6-14.8); White Blood Cell Count 10.2 X10^3/uL (4.5-11.0)
[2024-09-03 16:33] LABS: INR 1.1 (0.9-1.3); Prothrombin Time 12.8 SECONDS (9.4-12.5)
[2024-09-03 17:06] LABS: Lactate (Lactic Acid) 1.9 mmol/L (0.7-2.1)
[2024-09-03 17:08] LABS: Alanine Aminotransferase 22 IU/L (<35); Albumin 4.3 g/dL (3.5-5.0); Albumin Globulin Ratio 1.4 (1.0-2.8); Alkaline Phosphatase 76 U/L (38-126); Aspartate Aminotransferase 33 IU/L (14-36); BUN Creatinine Ratio 15.3 (6-22); Bilirubin Total 0.6 mg/dL (0.2-1.3); Blood Urea Nitrogen 9 mg/dL (7-17); Calcium 9.1 mg/dL (8.4-10.2); Carbon Dioxide 19 mmol/L (22-32); Chloride 104 mmol/L (98-107); Estimated Glomerular Filt Rate > 60 mL/min (>60); Globulin 3.1 g/dL (1.7-4.1); Glucose 108 mg/dL (70-100); HEMOLYSIS < 15 (0-50); Potassium 3.2 mmol/L (3.4-5.1); Sodium 134 mmol/L (137-145); Total Protein 7.4 g/dL (6.3-8.2)
[2024-09-03 17:18] LABS: Troponin I < 0.012 ng/mL (0.01-0.034)
[2024-09-03 17:48] LABS: HCG Quantitative /Beta subunit 19803 mIU/mL
[2024-09-03] MEDS: ALBUTEROL 2.5 MG/3 ML NEB (ADULT) INH (18:02)
--- NOTE | 2024-09-03 18:18 | ED.SOB ---
HPI - SOB/Dyspnea General Chief Complaint: Shortness of Breath/Dyspnea Stated Complaint: difficulty breathing, 18 weeks Time Seen by Provider: 09/03/24 17:49 History of Present Illness HPI Narrative: 29yoF at 18wks gestation with PMH asthma presents for chest tightness, dyspnea x 1 day as well as lower abdominal pain, vaginal spotting for the last month. Patient was seen in the emergency department on 08/11/2024 for vaginal bleeding in . At that time patient had live intrauterine without obvious source of bleeding. She is followed by Dr. Oneill of OBGYN in [place]. After initial ED visit she saw her OBGYN for ongoing lower abdominal pain and bleeding, however she states her OBYGN told her that there was nothing they could do, reportedly saying that the would either continue and be viable or she would miscarry. patient has new OBGYN visit scheduled through [facility] tomorrow, voicing dissatisfaction over her current OBGYN. This evening patient was putting her toddler to bed. She stood up and felt a vice around her chest and significant shortness of breath. She feels like her asthma has been somewhat worse since her , but this is much worse. Significant other at bedside stated that it looked like she was having a panic attack and having trouble breathing. Related Data Home Medications Medication Instructions Recorded Confirmed acetaminophen 325 mg tablet 975 mg PO PRN PRN Pain 06/04/23 06/04/23 fluoxetine 40 mg capsule 40 mg PO DAILY 06/04/23 06/04/23 hydrocodone 5 mg-acetaminophen 325 1 - 2 tab PO Q4-6H PRN pain 06/04/23 06/04/23 mg tablet rimegepant 75 mg disintegrating 75 mg PO DAILY PRN migraine 06/04/23 06/04/23 tablet (Nurtec ODT) Previous Rx's Medication Instructions Recorded ondansetron 4 mg disintegrating 4 mg PO Q6H PRN nausea and 05/25/24 tablet vomiting #10 tabs Allergies Allergy/AdvReac Type Severity Reaction Status Date / Time Penicillins Allergy Childhood Verified 08/11/24 13:21 rxn, unknown metoclopramide [From Reglan] AdvReac Intermediate Anxiety Verified 08/11/24 13:21 Patient History Medical History Chronic migraine Asthma PCOS (polycystic ovarian syndrome) Infertility Surgical History History of section History of hysteroscopy History of appendectomy Social History household members: spouse, family and children Smoking Status: Never smoker alcohol intake: current Smoking Status: Never smoker alcohol intake frequency: holidays/special occasions only Alcohol type: wine Exam Initial Vital Signs Initial Vital Signs: Vital Signs Temperature 98.5 F 09/03/24 16:01 Pulse Rate 126 H 09/03/24 16:01 Respiratory Rate 24 09/03/24 16:01 Blood Pressure 121/63 09/03/24 16:01 Pulse Oximetry 98 09/03/24 16:01 Oxygen Delivery Method Room Air 09/03/24 16:01 Const: Awake, alert, uncomfortable, anxious Cardiac:tachycardia, regular rhythm RESP: unlabored, clear bilaterally, no wheezing GI: Soft, gravid, no significant tenderness to deep palpation MSK: no edema, full range of motion, pulses equal Skin: Warm, Dry, intact, no rashes Neuro: AO x3, CN II-XII grossly intact, moves all extremities Course Orders Ordered: Discontinued Medications Albuterol (Albuterol 2.5 Mg/3 Ml Neb (Adult)) 2.5 mg INH NOW ONE Stop: 09/03/24 17:54 Last Admin: 09/03/24 18:02 Dose: 2.5 mg Documented By: DS Sodium Chloride (Normal Saline 0.9%) 1,000 mls @ 1,000 mls/hr IV BOLUS ONE Stop: 09/03/24 19:51 Last Infusion: 09/03/24 19:39 Dose: Infused Documented By: Admin: 09/03/24 18:53 Dose: 1,000 mls/hr Documented By: RB Vital Signs Vital signs: Vital Signs - 8 hr 09/03/24 16:01 09/03/24 16:36 09/03/24 16:45 Temperature 98.5 F Pulse Rate 126 H 113 H Respiratory Rate 24 31 H Blood Pressure 121/63 94/61 Pulse Oximetry 98 97 Oxygen Delivery Method Room Air 09/03/24 16:45 09/03/24 17:00 09/03/24 17:00 Temperature Pulse Rate 125 H 109 H Respiratory Rate 24 24 Blood Pressure 94/61 Pulse Oximetry 97 96 Oxygen Delivery Method 09/03/24 17:30 09/03/24 17:30 09/03/24 17:45 Temperature Pulse Rate 107 H Respiratory Rate 29 H Blood Pressure 101/61 96/58 L Pulse Oximetry 99 Oxygen Delivery Method 09/03/24 17:45 09/03/24 18:00 09/03/24 18:00 Temperature Pulse Rate 106 H 101 H Respiratory Rate 21 25 H Blood Pressure 99/57 L Pulse Oximetry 99 100 Oxygen Delivery Method 09/03/24 18:05 09/03/24 18:15 09/03/24 18:15 Temperature Pulse Rate 123 H 110 H Respiratory Rate 22 25 H Blood Pressure 91/51 L Pulse Oximetry 100 100 Oxygen Delivery Method Room Air 09/03/24 18:30 09/03/24 18:30 09/03/24 18:45 Temperature Pulse Rate 120 H Respiratory Rate 29 H Blood Pressure 95/59 L 93/60 Pulse Oximetry 100 Oxygen Delivery Method 09/03/24 18:45 09/03/24 19:00 09/03/24 19:00 Temperature Pulse Rate 111 H 108 H Respiratory Rate 30 H 18 Blood Pressure 99/61 Pulse Oximetry 100 99 Oxygen Delivery Method Room Air 09/03/24 19:15 09/03/24 19:15 09/03/24 19:30 Temperature Pulse Rate 123 H Respiratory Rate 24 Blood Pressure 110/64 100/58 L Pulse Oximetry 100 Oxygen Delivery Method Room Air 09/03/24 19:30 09/03/24 19:45 09/03/24 19:45 Temperature Pulse Rate 108 H 109 H Respiratory Rate 24 18 Blood Pressure 104/58 L Pulse Oximetry 100 100 Oxygen Delivery Method Room Air Room Air 09/03/24 20:00 09/03/24 20:00 09/03/24 20:15 Temperature Pulse Rate 107 H 114 H Respiratory Rate 12 21 Blood Pressure 100/57 L Pulse Oximetry 98 99 Oxygen Delivery Method Room Air Room Air 09/03/24 20:15 09/03/24 20:30 09/03/24 20:30 Temperature Pulse Rate 109 H Respiratory Rate 21 Blood Pressure 101/57 L 100/55 L Pulse Oximetry 99 Oxygen Delivery Method 09/03/24 20:50 09/03/24 20:50 09/03/24 21:00 Temperature Pulse Rate 113 H 110 H Respiratory Rate 22 22 Blood Pressure 113/59 L Pulse Oximetry 99 97 Oxygen Delivery Method 09/03/24 21:00 09/03/24 21:15 09/03/24 21:15 Temperature Pulse Rate 115 H Respiratory Rate 23 Blood Pressure 101/58 L 109/63 Pulse Oximetry 98 Oxygen Delivery Method 09/03/24 21:30 09/03/24 21:30 Temperature Pulse Rate 115 H Respiratory Rate 18 Blood Pressure 101/62 Pulse Oximetry 98 Oxygen Delivery Method MDM - SOB/Dyspnea Differential Diagnosis Differential diagnosis: Likely acute exacerbation of chronic obstructive airways disease, community acquired pneumonia and pulmonary embolism Lab Data 09/03/24 16:08 09/03/24 16:08 Labs: Lab Results 09/03/24 09/03/24 09/03/24 Range/Units 16:08 16:08 16:08 WBC 10.2 (4.5-11.0) X10^3/uL RBC 3.84 L (4.0-5.2) X10^6/uL Hgb 12.6 (12.0-16.0) g/dL Hct 35.8 L (36-46) % MCV 93.2 (80-100) fL MCH 32.8 (26-34) PG MCHC 35.2 (30-36) % RDW 13.2 (11.6-14.8) % Plt Count 336 (150-400) X10^3/uL Neut % (Auto) 76.2 H (50-75) % Lymph % (Auto) 16.4 L (25-40) % Bleckley % (Auto) 4.8 (3-14) % Eos % (Auto) 1.2 L (2-4) % Baso % (Auto) 1.4 (0-2) % Neut # (Auto) 7800 H (1957-8045) /uL Lymph # (Auto) 1700 (9361-9294) /uL Bleckley # (Auto) 500 (0-900) /uL Eos # (Auto) 100 (0-450) /uL Baso # (Auto) 100 (0-100) /uL PT 12.8 H (9.4-12.5) SECONDS INR 1.1 (0.9-1.3) D-Dimer (<500) ng/ml Sodium 134 L Cancelled (137-145) mmol/L Potassium 3.2 L Cancelled (3.4-5.1) mmol/L Chloride 104 (98-107) mmol/L Carbon Dioxide (22-32) mmol/L BUN (7-17) mg/dL Creatinine (0.52-1.04) mg/dL Estimated GFR (>60) mL/min BUN/Creatinine Ratio (6-22) Glucose (70-100) mg/dL Lactate (0.7-2.1) mmol/L Calcium (8.4-10.2) mg/dL Total Bilirubin (0.2-1.3) mg/dL AST (14-36) IU/L ALT (<35) IU/L Alkaline Phosphatase (38-126) U/L Troponin I (0.01-0.034) ng/mL Total Protein (6.3-8.2) g/dL Albumin (3.5-5.0) g/dL Globulin (1.7-4.1) g/dL Albumin/Globulin Ratio (1.0-2.8) HCG, Quant mIU/mL Blood Type Antibody Screen 09/03/24 09/03/24 09/03/24 Range/Units 16:08 16:08 16:08 WBC (4.5-11.0) X10^3/uL RBC (4.0-5.2) X10^6/uL Hgb (12.0-16.0) g/dL Hct (36-46) % MCV (80-100) fL MCH (26-34) PG MCHC (30-36) % RDW (11.6-14.8) % Plt Count (150-400) X10^3/uL Neut % (Auto) (50-75) % Lymph % (Auto) (25-40) % Bleckley % (Auto) (3-14) % Eos % (Auto) (2-4) % Baso % (Auto) (0-2) % Neut # (Auto) (9624-7926) /uL Lymph # (Auto) (0679-3018) /uL Bleckley # (Auto) (0-900) /uL Eos # (Auto) (0-450) /uL Baso # (Auto) (0-100) /uL PT (9.4-12.5) SECONDS INR (0.9-1.3) D-Dimer (<500) ng/ml Sodium (137-145) mmol/L Potassium (3.4-5.1) mmol/L Chloride Cancelled (98-107) mmol/L Carbon Dioxide 19 L Cancelled (22-32) mmol/L BUN 9 Cancelled (7-17) mg/dL Creatinine 0.59 (0.52-1.04) mg/dL Estimated GFR (>60) mL/min BUN/Creatinine Ratio (6-22) Glucose (70-100) mg/dL Lactate (0.7-2.1) mmol/L Calcium (8.4-10.2) mg/dL Total Bilirubin (0.2-1.3) mg/dL AST (14-36) IU/L ALT (<35) IU/L Alkaline Phosphatase (38-126) U/L Troponin I (0.01-0.034) ng/mL Total Protein (6.3-8.2) g/dL Albumin (3.5-5.0) g/dL Globulin (1.7-4.1) g/dL Albumin/Globulin Ratio (1.0-2.8) HCG, Quant mIU/mL Blood Type Antibody Screen 09/03/24 09/03/24 09/03/24 Range/Units 16:08 16:08 16:08 WBC (4.5-11.0) X10^3/uL RBC (4.0-5.2) X10^6/uL Hgb (12.0-16.0) g/dL Hct (36-46) % MCV (80-100) fL MCH (26-34) PG MCHC (30-36) % RDW (11.6-14.8) % Plt Count (150-400) X10^3/uL Neut % (Auto) (50-75) % Lymph % (Auto) (25-40) % Bleckley % (Auto) (3-14) % Eos % (Auto) (2-4) % Baso % (Auto) (0-2) % Neut # (Auto) (8172-6321) /uL Lymph # (Auto) (0025-9381) /uL Bleckley # (Auto) (0-900) /uL Eos # (Auto) (0-450) /uL Baso # (Auto) (0-100) /uL PT (9.4-12.5) SECONDS INR (0.9-1.3) D-Dimer (<500) ng/ml Sodium (137-145) mmol/L Potassium (3.4-5.1) mmol/L Chloride (98-107) mmol/L Carbon Dioxide (22-32) mmol/L BUN (7-17) mg/dL Creatinine Cancelled (0.52-1.04) mg/dL Estimated GFR > 60 Cancelled (>60) mL/min BUN/Creatinine Ratio 15.3 Cancelled (6-22) Glucose 108 H (70-100) mg/dL Lactate (0.7-2.1) mmol/L Calcium (8.4-10.2) mg/dL Total Bilirubin (0.2-1.3) mg/dL AST (14-36) IU/L ALT (<35) IU/L Alkaline Phosphatase (38-126) U/L Troponin I (0.01-0.034) ng/mL Total Protein (6.3-8.2) g/dL Albumin (3.5-5.0) g/dL Globulin (1.7-4.1) g/dL Albumin/Globulin Ratio (1.0-2.8) HCG, Quant mIU/mL Blood Type Antibody Screen 09/03/24 09/03/24 09/03/24 Range/Units 16:08 16:08 16:08 WBC (4.5-11.0) X10^3/uL RBC (4.0-5.2) X10^6/uL Hgb (12.0-16.0) g/dL Hct (36-46) % MCV (80-100) fL MCH (26-34) PG MCHC (30-36) % RDW (11.6-14.8) % Plt Count (150-400) X10^3/uL Neut % (Auto) (50-75) % Lymph % (Auto) (25-40) % Bleckley % (Auto) (3-14) % Eos % (Auto) (2-4) % Baso % (Auto) (0-2) % Neut # (Auto) (5336-7504) /uL Lymph # (Auto) (8431-9450) /uL Bleckley # (Auto) (0-900) /uL Eos # (Auto) (0-450) /uL Baso # (Auto) (0-100) /uL PT (9.4-12.5) SECONDS INR (0.9-1.3) D-Dimer (<500) ng/ml Sodium (137-145) mmol/L Potassium (3.4-5.1) mmol/L Chloride (98-107) mmol/L Carbon Dioxide (22-32) mmol/L BUN (7-17) mg/dL Creatinine (0.52-1.04) mg/dL Estimated GFR (>60) mL/min BUN/Creatinine Ratio (6-22) Glucose Cancelled (70-100) mg/dL Lactate 1.9 (0.7-2.1) mmol/L Calcium 9.1 Cancelled (8.4-10.2) mg/dL Total Bilirubin 0.6 Cancelled (0.2-1.3) mg/dL AST 33 (14-36) IU/L ALT (<35) IU/L Alkaline Phosphatase (38-126) U/L Troponin I (0.01-0.034) ng/mL Total Protein (6.3-8.2) g/dL Albumin (3.5-5.0) g/dL Globulin (1.7-4.1) g/dL Albumin/Globulin Ratio (1.0-2.8) HCG, Quant mIU/mL Blood Type Antibody Screen 09/03/24 09/03/24 09/03/24 Range/Units 16:08 16:08 16:08 WBC (4.5-11.0) X10^3/uL RBC (4.0-5.2) X10^6/uL Hgb (12.0-16.0) g/dL Hct (36-46) % MCV (80-100) fL MCH (26-34) PG MCHC (30-36) % RDW (11.6-14.8) % Plt Count (150-400) X10^3/uL Neut % (Auto) (50-75) % Lymph % (Auto) (25-40) % Bleckley % (Auto) (3-14) % Eos % (Auto) (2-4) % Baso % (Auto) (0-2) % Neut # (Auto) (8399-2553) /uL Lymph # (Auto) (4220-1839) /uL Bleckley # (Auto) (0-900) /uL Eos # (Auto) (0-450) /uL Baso # (Auto) (0-100) /uL PT (9.4-12.5) SECONDS INR (0.9-1.3) D-Dimer (<500) ng/ml Sodium (137-145) mmol/L Potassium (3.4-5.1) mmol/L Chloride (98-107) mmol/L Carbon Dioxide (22-32) mmol/L BUN (7-17) mg/dL Creatinine (0.52-1.04) mg/dL Estimated GFR (>60) mL/min BUN/Creatinine Ratio (6-22) Glucose (70-100) mg/dL Lactate (0.7-2.1) mmol/L Calcium (8.4-10.2) mg/dL Total Bilirubin (0.2-1.3) mg/dL AST Cancelled (14-36) IU/L ALT 22 Cancelled (<35) IU/L Alkaline Phosphatase 76 Cancelled (38-126) U/L Troponin I < 0.012 (0.01-0.034) ng/mL Total Protein 7.4 (6.3-8.2) g/dL Albumin (3.5-5.0) g/dL Globulin (1.7-4.1) g/dL Albumin/Globulin Ratio (1.0-2.8) HCG, Quant mIU/mL Blood Type Antibody Screen 09/03/24 09/03/24 09/03/24 Range/Units 16:08 16:08 16:08 WBC (4.5-11.0) X10^3/uL RBC (4.0-5.2) X10^6/uL Hgb (12.0-16.0) g/dL Hct (36-46) % MCV (80-100) fL MCH (26-34) PG MCHC (30-36) % RDW (11.6-14.8) % Plt Count (150-400) X10^3/uL Neut % (Auto) (50-75) % Lymph % (Auto) (25-40) % Bleckley % (Auto) (3-14) % Eos % (Auto) (2-4) % Baso % (Auto) (0-2) % Neut # (Auto) (4656-5178) /uL Lymph # (Auto) (7863-3499) /uL Bleckley # (Auto) (0-900) /uL Eos # (Auto) (0-450) /uL Baso # (Auto) (0-100) /uL PT (9.4-12.5) SECONDS INR (0.9-1.3) D-Dimer (<500) ng/ml Sodium (137-145) mmol/L Potassium (3.4-5.1) mmol/L Chloride (98-107) mmol/L Carbon Dioxide (22-32) mmol/L BUN (7-17) mg/dL Creatinine (0.52-1.04) mg/dL Estimated GFR (>60) mL/min BUN/Creatinine Ratio (6-22) Glucose (70-100) mg/dL Lactate (0.7-2.1) mmol/L Calcium (8.4-10.2) mg/dL Total Bilirubin (0.2-1.3) mg/dL AST (14-36) IU/L ALT (<35) IU/L Alkaline Phosphatase (38-126) U/L Troponin I (0.01-0.034) ng/mL Total Protein Cancelled (6.3-8.2) g/dL Albumin 4.3 Cancelled (3.5-5.0) g/dL Globulin 3.1 Cancelled (1.7-4.1) g/dL Albumin/Globulin Ratio 1.4 (1.0-2.8) HCG, Quant mIU/mL Blood Type Antibody Screen 09/03/24 09/03/24 Range/Units 16:08 18:08 WBC (4.5-11.0) X10^3/uL RBC (4.0-5.2) X10^6/uL Hgb (12.0-16.0) g/dL Hct (36-46) % MCV (80-100) fL MCH (26-34) PG MCHC (30-36) % RDW (11.6-14.8) % Plt Count (150-400) X10^3/uL Neut % (Auto) (50-75) % Lymph % (Auto) (25-40) % Bleckley % (Auto) (3-14) % Eos % (Auto) (2-4) % Baso % (Auto) (0-2) % Neut # (Auto) (6337-3375) /uL Lymph # (Auto) (6161-3266) /uL Bleckley # (Auto) (0-900) /uL Eos # (Auto) (0-450) /uL Baso # (Auto) (0-100) /uL PT (9.4-12.5) SECONDS INR (0.9-1.3) D-Dimer 1776 H (<500) ng/ml Sodium (137-145) mmol/L Potassium (3.4-5.1) mmol/L Chloride (98-107) mmol/L Carbon Dioxide (22-32) mmol/L BUN (7-17) mg/dL Creatinine (0.52-1.04) mg/dL Estimated GFR (>60) mL/min BUN/Creatinine Ratio (6-22) Glucose (70-100) mg/dL Lactate (0.7-2.1) mmol/L Calcium (8.4-10.2) mg/dL Total Bilirubin (0.2-1.3) mg/dL AST (14-36) IU/L ALT (<35) IU/L Alkaline Phosphatase (38-126) U/L Troponin I (0.01-0.034) ng/mL Total Protein (6.3-8.2) g/dL Albumin (3.5-5.0) g/dL Globulin (1.7-4.1) g/dL Albumin/Globulin Ratio Cancelled (1.0-2.8) HCG, Quant 07124 mIU/mL Blood Type O Positive Antibody Screen Negative Urine Dip Bedside Urine Glucose Negative Bedside Urine Bilirubin - Negative Bedside Urine Ketone +/- 5 Urine Specific Lopez 1.015 Bedside Urine Occult Blood - Negative Bedside Urine pH 7.0 Bedside Urine Protein +/- 15 Bedside Urine Urobilinogen - Negative Bedside Urine Nitrite - Negative Bedside Urine Leukocytes - Negative Esterase Imaging Data US - OB: Radiologist's Impression: PROCEDURE: US OB LIMITED INDICATIONS: 18wks, no felt movement x 1 wk, vaginal bleeding since 08/11 OUTSIDE/PRIOR DATING DATA: Working SUJATA by GRAHAM Miller is 02/06/2025 TECHNIQUE: Real-time scanning was performed of the fetus, with image documentation. COMPARISON: [facility], , US OB LIMITED, 08/11/2024, 13:38. FINDINGS: A single living intrauterine gestation is present. Presentation: Vertex. Placenta: Placental position is posterior, without previa. Amniotic fluid index: 10.2 cm, normal range is 5-24 cm. Single deepest vertical pocket is 3.1 cm. heart rate: 150 beats per minute. Maternal cervical canal: 6.7 cm long. Normal lower limit is 2.5 cm. Clinically estimated gestational age: 17 weeks and 5 days Possible vessels are seen adjacent to the placenta and crossing near the internal os. There are prominent venous lakes. Possible clot seen near the internal os. IMPRESSION: Living intrauterine gestation in vertex presentation. Normal CHARLES. Prominent venous lakes and abnormal appearing vessels on the surface and adjacent to the placenta, including near the internal os and inferior uterus. There may be clot at the internal os measuring 4.1 x 2.7 cm and possible vasa previa. Close attention on follow-up with obstetric evaluation are suggested, including endovaginal imaging on follow-up during 20 week anatomy scan. Dictated by: Chance Strong M.D. on 09/03/2024 at 18:09 Approved by: Chance Strong M.D. on 09/03/2024 at 18:15 CT scan - chest: Radiologist's Impression: PROCEDURE: CT ANGIO CHEST PE PROTOCOL INDICATIONS: , cp, dyspnea, elevated dimer TECHNIQUE: After the administration of intravenous contrast, 2 mm thick sections acquired from the pulmonary apices to the posterior costophrenic angles. 3-dimensional maximum intensity projection (MIP) coronal and sagittal reformats were then acquired through the thorax. For radiation dose reduction, the following was used: automated exposure control, adjustment of mA and/or kV according to patient size. COMPARISON: [facility], CT, CT ANGIO CHEST PE PROTOCOL, 06/09/2023, 17:34. FINDINGS: Image quality: Diagnostic. Pulmonary arteries: Pulmonary arteries are normal in size, and demonstrate no intraluminal filling defects to suggest central pulmonary embolism. Bilateral more distal segmental and subsegmental pulmonary artery branches are suboptimally opacified. Lower Neck: No enlarged lymph nodes. Thyroid: No thyroid nodules which require sonographic follow up, per consensus guidelines. Axillae: No enlarged lymph nodes. Chest Wall: Unremarkable. Bones: Unremarkable. Lungs and Pleura: No pneumothorax or pleural effusions. Mild dependent atelectasis in posterior aspect of bilateral lung gray are seen. No consolidation or suspicious nodules. Heart: Heart size is normal. No pericardial effusion. Thoracic Vessels: No aortic aneurysm. Mediastinum and Sona: No enlarged lymph nodes. Esophagus: No wall thickening. No hiatal hernia. Upper Abdomen: Visualized upper abdomen solid organs and bowel loops appear normal. IMPRESSION: 1. No large central pulmonary embolus. Bilateral distal segmental and subsegmental pulmonary artery branches are suboptimally opacified. No thoracic aortic aneurysm or dissection. 2. No focal infiltrate, pleural effusion or pneumothorax. 3. No mediastinal or hilar lymphadenopathy. Dictated by: Fuad Paulino M.D. on 09/03/2024 at 21:12 Approved by: Fuad Paulino M.D. on 09/03/2024 at 21:20 MDM Narrative Medical decision making narrative: Patient presenting for shortness of breath and ongoing abdominal cramping for nearly 1 month. She states that her current OBGYN has not done anything for her symptoms and she was switching to a new OBGYN, her 1st appointment with that physician is tomorrow. Patient was tachycardic on arrival, able to speak in complete sentences without dyspnea. Saturating well on room air. Laboratory work ordered. EKG reviewed, however it was not crossed into our computer system. Patient is in sinus tachycardia without ischemic findings. Laboratory work reviewed. WBC count 10.2, hemoglobin 12.6, platelet count 336, sodium 134, potassium 3.2, creatinine 0.59, troponin undetectable. Patient is blood type O positive. D-dimer also drawn, pending at this time. Obstetrics ultrasound shows possible clot at internal os, possible vasa previa. Patient hemoglobin stable and since symptoms have been ongoing and patient is in 2nd trimester, pelvic exam to be deferred to OBGYN appointment tomorrow. D-dimer elevated at 1770. Per years criteria a CT angio recommended. Extensive risk and benefit conversation had at bedside with patient and spouse at bedside. I explained the risks of pulmonary embolism as well as possible risks to developing fetus from CT including possible miscarriage. Patient stated that she would rather miscarry and be there for her 3 year old daughter than potentially miss a blood clot. CT scan does not show any obvious large pulmonary embolism. Troponin is undetectable, D-dimer could also possibly be elevated due to ongoing vaginal bleeding. Patient informed of all lab and imaging findings. She has an appointment tomorrow with OBGYN and she was counseled to discuss all of her ER findings with her OBGYN at the appointment tomorrow. ED return precautions discussed. Discharge Plan Departure Patient Disposition: Home Clinical Impression: Dyspnea, Chest tightness, Abdominal pain, Vaginal bleeding before 22 weeks gestation, Type O blood, Rh positive Instructions: DI for Shortness of Breath Activity Restrictions/Additional Instructions: Your blood work today is reassuring. There is no sign of stress or strain on your heart. Your blood counts are normal, and there was no sign of heart attack or lung disease. The CT that we ordered of your chest today did not show any signs of large blood clots. The ultrasound obtained today showed that there may be a low-lying blood clot. Close attention should be had with your OBGYN for this finding, especially at your 20 week scan. I recommend pelvic rest (aka nothing in the vagina) unless your OBGYN instructs otherwise If you notice new or worsening concerns please return to the emergency department for repeat evaluation. Prescriptions: No Action fluoxetine 40 mg capsule 40 mg PO DAILY acetaminophen 325 mg Tablet 975 mg PO PRN PRN (Reason: Pain) hydrocodone-acetaminophen 5-325 mg tablet 1 - 2 tab PO Q4-6H PRN (Reason: pain) Nurtec ODT 75 mg tablet,disintegrating 75 mg PO DAILY PRN (Reason: migraine) ondansetron 4 mg tablet,disintegrating 4 mg PO Q6H PRN (Reason: nausea and vomiting) Qty: 10 0RF Referrals: Miscellaneous,Doctor, MD [Primary Care Provider] - Stand Alone Forms: Patient Portal/API/Survey
[2024-09-03] MEDS: SODIUM CHLORIDE 0.9% 1,000 ML 1000 ML IV (18:53)
[2024-09-03 19:15] LABS: D Dimer 1776 ng/ml (<500)
--- NOTE | 2024-09-03 19:21 | DI.RAD.S_ITS ---
PROCEDURE: XR CHEST 1V INDICATIONS: dyspnea TECHNIQUE: One view of the chest was acquired. COMPARISON: [facility], CR, XR CHEST 2V, 07/16/2022, 17:30. FINDINGS: Surgical changes and devices: None. Lungs and pleura: Lungs are clear. No pleural effusions or pneumothorax. Mediastinum: Mediastinal contours appear normal. Heart size is normal. Bones and chest wall: No suspicious bony lesions. Overlying soft tissues appear unremarkable. IMPRESSION: No acute cardiopulmonary pathology. Dictated by: Fuad Paulino M.D. on 09/03/2024 at 20:00 Approved by: Fuad Paulino M.D. on 09/03/2024 at 20:01
--- NOTE | 2024-09-03 19:38 | PC.NURSE ---
Pt to imaging via ED stretcher with java technical manager
--- NOTE | 2024-09-03 19:46 | PC.NURSE ---
Imaging at bedside
--- NOTE | 2024-09-03 20:12 | DI.CT.S_ITS ---
PROCEDURE: CT ANGIO CHEST PE PROTOCOL INDICATIONS: , cp, dyspnea, elevated dimer TECHNIQUE: After the administration of intravenous contrast, 2 mm thick sections acquired from the pulmonary apices to the posterior costophrenic angles. 3-dimensional maximum intensity projection (MIP) coronal and sagittal reformats were then acquired through the thorax. For radiation dose reduction, the following was used: automated exposure control, adjustment of mA and/or kV according to patient size. COMPARISON: [facility], CT, CT ANGIO CHEST PE PROTOCOL, 06/09/2023, 17:34. FINDINGS: Image quality: Diagnostic. Pulmonary arteries: Pulmonary arteries are normal in size, and demonstrate no intraluminal filling defects to suggest central pulmonary embolism. Bilateral more distal segmental and subsegmental pulmonary artery branches are suboptimally opacified. Lower Neck: No enlarged lymph nodes. Thyroid: No thyroid nodules which require sonographic follow up, per consensus guidelines. Axillae: No enlarged lymph nodes. Chest Wall: Unremarkable. Bones: Unremarkable. Lungs and Pleura: No pneumothorax or pleural effusions. Mild dependent atelectasis in posterior aspect of bilateral lung gray are seen. No consolidation or suspicious nodules. Heart: Heart size is normal. No pericardial effusion. Thoracic Vessels: No aortic aneurysm. Mediastinum and Sona: No enlarged lymph nodes. Esophagus: No wall thickening. No hiatal hernia. Upper Abdomen: Visualized upper abdomen solid organs and bowel loops appear normal. IMPRESSION: 1. No large central pulmonary embolus. Bilateral distal segmental and subsegmental pulmonary artery branches are suboptimally opacified. No thoracic aortic aneurysm or dissection. 2. No focal infiltrate, pleural effusion or pneumothorax. 3. No mediastinal or hilar lymphadenopathy. Dictated by: Fuad Paulino M.D. on 09/03/2024 at 21:12 Approved by: Fuad Paulino M.D. on 09/03/2024 at 21:20
--- NOTE | 2024-09-03 20:38 | PC.NURSE ---
Pt to imaging via ED stretcher with social services technician
== END 2024-09-03 21:45 | disposition home or self-care (01) ==
PROVIDERS: Emergency Medicine; Emergency Provider Emergency Medicine
DX: O20.9 Hemorrhage in early pregnancy, unspecified (principal); O26.892 Other specified pregnancy related conditions, second trimester; O99.891 Other specified diseases and conditions complicating pregnancy; R06.00 Dyspnea, unspecified; R07.89 Other chest pain; R10.9 Unspecified abdominal pain; R00.0 Tachycardia, unspecified; Z67.41 Type O blood, Rh negative; Z3A.18 18 weeks gestation of pregnancy
CPT/HCPCS: 36415; 71045; 71275; 76815; 76817; 80053; 81003; 83605; 84484; 84702; 85025; 85379; 85610; 86850; 86900; 86901; 94640; 96360; 99284; J7613; Q9967

== ENCOUNTER 2025-01-31 08:10 | Inpatient (IN) | payer OTHER, SELFPAY ==
[2023-06-04 06:11] VITALS: BMI 22.6
[2025-01-31] VITALS (7 sets, daily range): BP systolic 89–116; BP diastolic 49–74; PULSE 90–105; RESP 11–20; TEMP 36.3–36.6; O2SAT 98–100
--- NOTE | 2025-01-31 08:17 | PM.OBHP.IH.1 ---
OB HPI Date/Time Date of admission: 01/31/25 Date Patient Seen: 01/31/25 Time Patient Seen: 08:00 History of Present Condition Chief complaint: LABOR Estimated Gestational Age (weeks): 39w1d : 3 Para: 1 Narrative: This is a 29 yo at 39w1d who woke up at 5:30 am to SROM. Clear fluids. Good movement. Strong contractions. Hx of in last . Discussed with primary OB- arrest of descent, pushed for 4 hours, failed vaccuum with 1 pop off, general anesthesia for poor pain control with epidural. complicated by IVF , GBS positive. She has been receiving care at [facility] with plan for TOLAC. Last growth US 38 weeks - EFW 42 percentile. She has mod/severe asthma now on symbicort, famotidine, using albuterol daily. She had pfts that were normal in december. She has anxiety/depression controlled on prozac. care: good care Indications Operative indications ( section): previous uterine surgery Preadmission Labs Last OB Lab Results: Blood Type O Positive 09/03/24, 16:08 Antibody Screen Negative 09/03/24, 16:08 Hct, (36-46) 36.4 % Today, 08:10 Hgb, (12.0-16.0) 12.4 g/dL Today, 08:10 Prior (ies) Hx # Term Pregnancies: 2 Number of Living Children: 1 Spontaneous abortions: 1 Evaluation Evaluation Baseline heart rate: 145 Variability: Average (6-10) monitor accelerations: Present Monitor Decelerations: Absent Contraction Frequency (minutes): 3 Uterine Contraction Intensity: Strong/Firm Category of Tracing: Reactive Status: Category l Dilation (cm): 5 Effacement (%): 90 station: 0 Position of cervix: posterior Consistency: soft PFSH Medical History Chronic migraine Asthma PCOS (polycystic ovarian syndrome) Infertility Surgical History History of section History of hysteroscopy History of appendectomy Social History household members: spouse, family and children alcohol intake: current Meds Home Medications and Allergies Home Medications ?Medication ?Instructions ?Recorded ?Confirmed ?Type acetaminophen 325 mg tablet 975 mg PO PRN PRN Pain 06/04/23 06/04/23 History fluoxetine 40 mg capsule 40 mg PO DAILY 06/04/23 06/04/23 History hydrocodone 5 mg-acetaminophen 325 1 - 2 tab PO Q4-6H PRN pain 06/04/23 06/04/23 History mg tablet rimegepant 75 mg disintegrating 75 mg PO DAILY PRN migraine 06/04/23 06/04/23 History tablet (Nurtec ODT) ondansetron 4 mg disintegrating 4 mg PO Q6H PRN nausea and 05/25/24 Rx tablet vomiting #10 tabs Allergies Allergy/AdvReac Type Severity Reaction Status Date / Time Penicillins Allergy Childhood Verified 08/11/24 13:21 rxn, unknown metoclopramide (From Reglan) AdvReac Intermediate Anxiety Verified 08/11/24 13:21 OB Exam Narrative Exam Narrative: Uncomfortable, breathing through contractions. Assessment and Plan Assessment and Plan Assessment and Plan narrative: 29 yo at 39w1d here with SROM and spontaneous labor in setting of previous delivery. complicated by IVF, GBS pos. SVE 5/90/0. Hx of Delivery -will proceed with CS delivery -It was explained to the patient that a section is a surgery to deliver the baby through an incision in the abdominal wall and uterus.? All procedures can be associated with risk and unforeseen complications, which can be immediate or delayed.? Risks and complications of section include, but are not limited to:? infection of the uterus, pelvic organs, or skin; inadvertent injury to internal organs such as the bowel, bladder, or possibly even the baby; blood loss, transfusion, and/or life-threatening hemorrhage requiring hysterectomy; blood clots in the legs, pelvic organs, or lungs; adverse reaction to medications or anesthesia during surgery; development of placenta accreta spectrum in a subsequent ; and increased risk of section in a subsequent . -allergy to penicillins; will give clinda, gent, azith for prophylaxis Asthma -avoid hemabate Time-Based Coding :: 60 minutes spent with patient and on the chart (including review of chart, obtaining history, exam, reviewing outside data, placing orders, documenting exam and treatment plan, and counseling patient) on 01/31/2025.
[2025-01-31] MEDS: LACTATED RINGERS 1,000 ML 999 ML IV ×2 (08:30→09:48)
[2025-01-31 08:37] LABS: Add Manual Diff / Slide Review NO; Basophils Absolute Auto 0 /uL (0-100); Basophils Percent Auto 0.3 % (0-2); Eosinophils Absolute Auto 0 /uL (0-450); Eosinophils Percent Auto 0.3 % (2-4); Hematocrit 36.4 % (36-46); Hemoglobin 12.4 g/dL (12.0-16.0); Lymphocytes Absolute Auto 2000 /uL (1100-4500); Lymphocytes Percent Auto 14.6 % (25-40); Mean Corpuscular HGB Conc 34.1 % (30-36); Mean Corpuscular Hemoglobin 30.2 PG (26-34); Mean Corpuscular Volume 88.4 fL (80-100); Monocytes Absolute Auto 800 /uL (0-900); Monocytes Percent Auto 5.6 % (3-14); Neutrophils Absolute Auto 10600 /uL (1500-7000); Neutrophils Percent Auto 79.2 % (50-75); Platelet Count 260 X10^3/uL (150-400); Red Blood Cell Count 4.12 X10^6/uL (4.0-5.2); White Blood Cell Count 13.4 X10^3/uL (4.5-11.0)
[2025-01-31] MEDS: CITRIC ACID/SODIUM CITRATE 15 ML SOLUTION 30 ML PO (08:57)
[2025-01-31] MEDS: CLINDAMYCIN 900 MG/50 ML PIGGYBACK 50 MG IV (09:03)
--- NOTE | 2025-01-31 09:15 | SUR.OPER ---
Supine on Padded OR bed, head on pillow, safety belt at thigh, arms secured on padded arm boards at <90 degrees abduction. Bump under right buttock. Legs uncrossed with pillow under knees, gel pad to heels, tape over blanket to lower legs.
[2025-01-31] MEDS: AZITHROMYCIN 500 MG in DEXTROSE 5% IN WATER 250 ML 250 MG IV (09:30)
[2025-01-31] MEDS: GENTAMICIN 320 MG in SODIUM CHLORIDE 0.9% 100 ML 108 MG IV (09:30)
[2025-01-31] MEDS: ACETAMINOPHEN IV 1,000 MG/100 ML VIAL 400 MG IV (09:32)
[2025-01-31] MEDS: TRANEXAMIC ACID 1,000 MG in SODIUM CHLORIDE 0.9% 100 ML 200 MG IV (09:54)
--- NOTE | 2025-01-31 10:02 | SUR.OPER ---
Viable baby girl born at 0949.
--- NOTE | 2025-01-31 10:59 | P.OP_ITS ---
Operative Date/Time/Diagnoses Date of procedure: 01/31/25 Time of procedure: 09:30 Pre-op diagnosis: Term Hx of Delivery Post-op diagnosis: same Procedure & Clinicians Procedure: Repeat Delivery Same procedure as scheduled: Yes Surgeon: Dominga Brock Click Yes if Unassisted: No Lead Process Engineer: Brooklyn Fernando Reason for Lead Process Engineer: unscheduled Anesthesia Type: Spinal Operative Notes Findings: Normal uterus, ovaries, and tubes Closure Type: primary Intraoperative meds administered: Pitocin and Tranexamic acid Applied: Catheter Estimated Blood Loss (mL): 1,000 Blood products transfused: none Procedure in detail: OPERATIVE COURSE: The patient was taken to the operating room where spinal anesthesia was placed. She was then prepared and draped in the normal sterile fashion in the dorsal supine position with a leftward tilt. Anesthesia was tested and found to be adequate. A Pfannensteil skin incision was then made with the scalpel and carried through to the underlying layer of fascia with the scalpel. The fascia was incised in the midline and the incision extended laterally with the Sy scissors. The superior aspect of the fascial incision was then grasped with Prabhakar clamps, elevated with the help of the surgical technologist, and the underlying rectus muscles dissected off bluntly and sharply where needed. Attention was then turned to the inferior aspect of the incision which, in a similar fashion, was grasped, tented up with Prabhakar clamps, and the rectus muscle dissected off bluntly and sharply with Sy scissors. The rectus muscles were then in the midline, and the peritoneum was identified and entered bluntly. The peritoneal incision was then extended with good visualization of the bladder. The Bernabe retractor was placed. Retraction was provided by the surgical technologist. The vesicouterine peritoneum identified, grasped with pick-ups and entered sharply with the Metzenbaum scissors. The incision was then extended laterally and the bladder flap created digitally. Next the lower uterine segment was incised in a transverse fashion with the scalpel, with the surgical technologist providing suction. The uterine incision was then extended superolaterally by pulling superolaterally on both sides. Membranes were ruptured and fluid was clear. The 's head was flexed out of KATYA position and delivered atraumatically, with fundal pressure by the surgical technologist. The nose and mouth were suctioned with bulb suction and the cord was clamped and cut. The was handed off to the waiting nursing staff. The placenta was then delivered with manual extraction. The uterus was then cleared of all clots and debris. The uterine incision was repaired with in a running, locked fashion with 0-vicryl. A second layer of 0-monocryl was used for imbrication. There was an area on the right lateral edge of the hysterotomy that continued to bleed. TXA was asked for and given. A figure of 8 was placed with 0-vicryl. There was then excellent hemostasis. The gutters were cleared of all clots. Hysterotomy was investigated and found to be hemostatic. Surgicel was placed over the hysterotomy. The fascia was reapproximated with 0-vicryl in a running fashion. The subcutaneous tissue was reapproximated with 3-0 vicryl. The skin was closed with 4-0 monocryl. The surgical technologist helped with retraction during closures. SPONGE AND NEEDLE COUNTS: Correct x3. DRESSING: Glue and tefla ANTICOAGULATION: SCDs applied prior to Surgery Preop antibiotics given (see MAR). The patient was taken to recovery room having tolerated procedure well. Complications: none Post-operative Condition: stable Disposition: PACU Aftercare: routine postop
[2025-01-31] MEDS: KETOROLAC 30 MG/ML VIAL IV ×3 (11:45→23:42)
[2025-01-31] MEDS: OXYCODONE IR 5 MG TABLET PO (14:27)
[2025-01-31 14:29] LABS: Add Manual Diff / Slide Review NO; Basophils Absolute Auto 100 /uL (0-100); Basophils Percent Auto 0.4 % (0-2); Eosinophils Absolute Auto 0 /uL (0-450); Hemoglobin 10.6 g/dL (12.0-16.0); Lymphocytes Absolute Auto 500 /uL (1100-4500); Lymphocytes Percent Auto 2.4 % (25-40); Mean Corpuscular HGB Conc 34.2 % (30-36); Mean Corpuscular Hemoglobin 30.1 PG (26-34); Monocytes Absolute Auto 700 /uL (0-900); Monocytes Percent Auto 3.8 % (3-14); Neutrophils Absolute Auto 17500 /uL (1500-7000); Neutrophils Percent Auto 93.4 % (50-75); Platelet Count 221 X10^3/uL (150-400); Red Blood Cell Count 3.52 X10^6/uL (4.0-5.2); Red Cell Distribution Width 13.8 % (11.6-14.8); White Blood Cell Count 18.7 X10^3/uL (4.5-11.0)
[2025-01-31] MEDS: ACETAMINOPHEN 325 MG TABLET 650 MG PO ×2 (15:28→21:33)
[2025-01-31] MEDS: ALBUTEROL HFA PREPACK 1 BOX MISC (23:43)
[2025-02-01] MEDS: FLUoxetine 20 MG CAPSULE 60 MG PO (00:34)
[2025-02-01] MEDS: OXYCODONE IR 5 MG TABLET PO ×4 (02:09→23:04)
[2025-02-01] MEDS: ACETAMINOPHEN 325 MG TABLET 650 MG PO ×3 (05:27→18:41)
[2025-02-01] MEDS: KETOROLAC 30 MG/ML VIAL IV (05:28)
[2025-02-01] MEDS: FERROUS SULFATE 325 MG TABLET PO (09:49)
[2025-02-01] MEDS: PRENATAL VIT,CALC/IRON/FOLIC 1 TABLET 1 TAB PO (09:49)
[2025-02-01] MEDS: DOCUSATE 100 MG CAPSULE PO (09:49)
--- NOTE | 2025-02-01 09:49 | PM.OBPN.1 ---
Subjective - OB Subjective Patient comments: no complaints, pain well controlled, tolerating diet and flatus present baby status: doing well and nursing well [place] feeding status: exclusively breast feeding Narrative: This is a 29 yo G3 now P2 s/p RLTCS at 39w0d. She is having some increased pain today but otherwise is doing well. She reports flatus present. Ambulating without difficulty. Bleeding like a menstrual period. without difficulty. Date Patient Seen: 02/01/25 Time Patient Seen: 09:30 Exam Vital Signs (past 8 hours): Oxygen Delivery Method Room Air Narrative Exam Narrative: NAD, resting comfortably in bed Objective Labs 01/31/25 14:20 Labs: Laboratory Results - last 24 hr 01/31/25 14:20 WBC 18.7 H RBC 3.52 L Hgb 10.6 L Hct 31.0 L MCV 88.0 MCH 30.1 MCHC 34.2 RDW 13.8 Plt Count 221 Neut % (Auto) 93.4 H Lymph % (Auto) 2.4 L [place] % (Auto) 3.8 Eos % (Auto) 0.0 L Baso % (Auto) 0.4 Neut # (Auto) 77447 H Lymph # (Auto) 500 L [place] # (Auto) 700 Eos # (Auto) 0 Baso # (Auto) 100 Assessment & Plan Plan day: 1 plan OB: routine postop care Time-Based Coding :: 30 minutes spent with patient and on the chart (including review of chart, obtaining history, exam, reviewing outside data, placing orders, documenting exam and treatment plan, and counseling patient) on 02/01/2025.
[2025-02-01] MEDS: LANOLIN OINT 7 GM 1 APPLIC TOP (12:34)
[2025-02-01] MEDS: IBUPROFEN 600 MG TABLET PO ×2 (12:34→18:42)
--- NOTE | 2025-02-01 13:15 | CM.SWNOTE ---
ANTI AIR WARFARE OPERATIONS OFFICER Assessment Note ANTI AIR WARFARE OPERATIONS OFFICER receives notification of ANTI AIR WARFARE OPERATIONS OFFICER referral from ANTI AIR WARFARE OPERATIONS OFFICER. It is reported that patient has mental health hx and RN requested ANTI AIR WARFARE OPERATIONS OFFICER referral. Per records from [facility], patient has hx of complex PTSD, anxiety and depression. It is reported in records that patient sees a psychiatrist and therapist via telehealth and patient is prescribed Prozac. ANTI AIR WARFARE OPERATIONS OFFICER enter room to meet with patient, patient presents as A/Ox4, calm, cooperative and coherent. Patient's s/o was resting in the room as well. Patient's new born baby was in another room temporarily observed by RNs. Patient endorses she and reside in [place] with her grandmother and their 3 y/o daughter. Patient endorses that they have a junior php developer and several friends as supports as well grandmother. Patient also endorses that their orthodoxy is a support as well. ANTI AIR WARFARE OPERATIONS OFFICER asks about patient's MH services in place, patient states she has an upcoming appointment with therapist tomorrow, patient states she is working with her psychiatrist to find local MH providers as well. Patient endorses she feels supported with her team and denies any concerns at this time. Patient endorses that she has a safe sleep environment prepared for baby and has baby supplies as well. Patient endorses interest in information about motherhood support groups. ANTI AIR WARFARE OPERATIONS OFFICER provides patient with information about [facility] motherhood support groups and mentor groups. Patient identifies that one of the groups is located at the orthodoxy she goes to. ANTI AIR WARFARE OPERATIONS OFFICER also provides patient with lists of [facility] services and MH resources. Upon re-entry to patient's room, patient's baby is present and patient presents as appropriate and attentive with baby. Both patient and s/o present with calm and attentive demeanor. ANTI AIR WARFARE OPERATIONS OFFICER encourages patient to f/u with outpatient appts with MH providers and PCP for patient and baby. It is the opinion of this ANTI AIR WARFARE OPERATIONS OFFICER that patient is safe to d/c to home with baby upon medical clearance. Lynda Solis, REIMBURSEMENT COUNSELOR
[2025-02-01] MEDS: ONDANSETRON 4 MG ODT PO (23:08)
[2025-02-02] MEDS: ACETAMINOPHEN 325 MG TABLET 650 MG PO ×2 (00:19→06:22)
[2025-02-02] MEDS: KETOROLAC 30 MG/ML VIAL IV (00:20)
[2025-02-02] MEDS: diphenhydrAMINE 50 MG/ML VIAL 25 MG IV (00:25)
[2025-02-02 00:32] VITALS: BP 97/64; PULSE 72
[2025-02-02] MEDS: PROCHLORPERAZINE 10 MG/2 ML VIAL IV (00:32)
[2025-02-02] MEDS: IBUPROFEN 600 MG TABLET PO (06:21)
--- NOTE | 2025-02-02 08:36 | P.DS_ITS ---
Discharge Providers Provider Date of admission: 01/31/25 08:10 Discharge Date: 02/02/25 Primary care physician: Doctor Samuel MD Consults: 01/31/25 11:20 Consult to Medical Editor Routine Comment: 02/01/25 08:10 Consult to TOLL TEST DESK WORKER - Geothermal Production Manager Routine Comment: Geothermal Production Manager Consult needed for:: Mental illness Comment: Pt has significant mental health hx. Has follow up with [facility] and possibly [facility], but want to see if she needs something more local or that she intends to follow up there. Discharge provider: Dominga Brock MD Summary Hospital Course Date Patient Seen: 02/02/25 Time Patient Seen: 07:30 Diagnoses: Term , hx of Hospital Course: This is a 29 yo G3 now P2 who presented at 39w1d with SROM and spontaneous labor. Hx of in last . She has been receiving care at [facility] with plan for TOLAC. Discussed with primary OB at [facility] ([place], [place]), last with arrest of descent, pushed for 4 hours, failed vaccuum with 1 pop off, general anesthesia for poor pain control with epidural. complicated by IVF , GBS positive. Last growth US 38 weeks - EFW 42 percentile. She has mod/severe asthma now on symbicort, famotidine, using albuterol daily. She had pfts that were normal in december. She has anxiety/depression controlled on prozac. she did well. She does have migraines and had a migraine on post op day 2 that was controlled with medications. She is well with formula supplementation. She is ambulating without difficulty. Voiding. Flatus present. Pain controlled. Peripartum Data Delivery Method: Section complications: none Status at Discharge Cognitive/behavioral status at discharge: oriented Functional status at discharge: independent ambulation Overall status at discharge: patient is back to baseline Time Spent with Patient Time attestation: Total time spent providing and/or coordinating discharge services: 35 minutes Objective Labs 01/31/25 14:20 Exam Vital Signs (past 8 hours): Oxygen Delivery Method Room Air Narrative Exam Narrative: NAD, resting comfortably in bed Discharge Plan Discharge Plan Patient Disposition: Home Discharge orders & Medications Prescriptions: New acetaminophen 325 mg Tablet 650 mg PO Q6H Qty: 60 0RF docusate sodium 100 mg Capsule 100 mg PO DAILY Qty: 60 0RF Continued fluoxetine 40 mg capsule 40 mg PO DAILY Nurtec ODT 75 mg tablet,disintegrating 75 mg PO DAILY PRN (Reason: migraine) albuterol sulfate 90 mcg/actuation HFA aerosol inhaler 2 puff inhalation Q6H sumatriptan succinate 50 mg tablet 50 mg PO .once a day famotidine 20 mg tablet 20 mg PO BID (DME) Delfino Isabel [facility] Spacer MISCELLANEOUS BID budesonide-formoterol 160-4.5 mcg/actuation HFA aerosol inhaler 2 puff INHALATION BID fluoxetine 60 mg tablet 60 mg PO DAILY No Action oxycodone 5 mg tablet 5 mg PO Q4H PRN (Reason: Pain, Moderate (4-6)) Qty: 24 0RF ibuprofen 600 mg tablet 600 mg PO Q6H Qty: 60 0RF Follow up/Referrals: Doctor Baker MD [Primary Care Provider, Medical] Cecile Rollins MD [Physician, Family Practice] - 02/11/25 12:00 pm Referral Note: You and you baby have check ups with Dr. Rollins on February 11 @12:00pm. It is an incision check for you and well baby exam for her. Visit Report/Discharge Packet Instructions: DI for Stand Alone Forms: Discharge: Care, Patient Portal/API, Stroke Signs & Symptoms Discharge Data Primary Care Provider: Doctor Samuel
[2025-02-02] MEDS: PRENATAL VIT,CALC/IRON/FOLIC 1 TABLET 1 TAB PO (09:04)
[2025-02-02] MEDS: FERROUS SULFATE 325 MG TABLET PO (09:04)
[2025-02-02] MEDS: DOCUSATE 100 MG CAPSULE PO (09:04)
== END 2025-02-02 11:00 | disposition home or self-care (01) | DRG 787 ==
PROVIDERS: Admitting Provider Student in an Organized Health Care Education/Training Program; Referring Provider Student in an Organized Health Care Education/Training Program; Visit Provider Student in an Organized Health Care Education/Training Program
PROC: 10D00Z1 Extraction of Products of Conception, Low, Open Approach (ICD-10-PCS; CPT 59514; principal; 2025-01-31 09:00)
DX: O34.211 Maternal care for low transverse scar from previous cesarean delivery (principal); O99.354 Diseases of the nervous system complicating childbirth; Z67.40 Type O blood, Rh positive; O99.824 Streptococcus B carrier state complicating childbirth; Z3A.39 39 weeks gestation of pregnancy; Z37.0 Single live birth; O99.52 Diseases of the respiratory system complicating childbirth; O99.344 Other mental disorders complicating childbirth; J45.909 Unspecified asthma, uncomplicated; F32.A Depression, unspecified; F41.9 Anxiety disorder, unspecified; G43.909 Migraine, unspecified, not intractable, without status migrainosus; Z88.0 Allergy status to penicillin
CPT/HCPCS: 36415; 59050; 59514; 85025; 86850; 86900; 86901; 99222; 99238; 99239; G0379; J0131; J0780; J1100; J1200; J1885; J2274; J2405